=== PATIENT | female | born 1935 | race Caucasian/White ===

== ENCOUNTER → 2016-08-19 | Outpatient (CLI) | payer OTHER ==
--- NOTE | 2016-08-19 17:26 | MR ---
MRI Thoracic Spine Without Contrast History: Compression fracture. Follow-up. Comparison: X-ray from May 2016 and MRI from August 2014. Technique: MRI is performed of the thoracic spine using a 1.5 Tayler MRI system. Sagittal and axial im aging was obtained with standard imaging sequences. Findings: Moderate compression deformity is seen of T8, stable in comparison to the x-ray with eviden ce of methylmethacrylate placement. There is 5 mm of methylmethacrylate posterior and left of the edgardo tebral body in the spinal canal at the lateral recess. Slight anterior wedge compression fracture is seen of T9, which is stable and chronic in appearance. Mild degenerative endplate change is seen at T 8-T9. Degenerative endplate change is also seen at T10-T11 and T11-T12. Disk dislocation is seen at m ultiple levels in the lumbar spine. No significant spondylolisthesis. Compression fracture is seen of L1, which will be described in the lumbar spine report. Thoracic spinal cord is normal in size and s ignal intensity. Mild broad-based annular bulge is seen at T10-T11 and facet arthropathy, causing mil d spinal canal and neural foraminal encroachment. Similar mild degenerative disk and degenerative clemencia nt disease at T11-T12. No other significant spinal canal or neural foraminal encroachment. Impression: 1. Stable moderate chronic compression deformity of T8 with evidence of methylmethacrylate. There is a 5 mm focus of methylmethacrylate posterior to the vertebral body at the left lateral recess at T8. 2. Slight chronic anterior wedge compression deformity of T9. No new compression fractures visualized . 3. Multilevel degenerative disk and degenerative joint disease thoracic spine with mild encroachment of T10-T11 and T11-T12.
--- NOTE | 2016-08-20 20:10 | MR ---
MRI of the Lumbar Spine (Without Contrast) Indication: History of compression fracture. Follow-up. Technique: Sagittal and axial T1 and T2, and sagittal STIR MRI sequences of the lumbar spine without contrast. Axial imaging from T12-S1. Comparison: MRI lumbar spine dated July 01, 2015. Findings: No new compression fracture. The minimal old L1 compression deformity is unchanged and kal a previously in the L2 vertebral body has completely resolved. There is 4 mm of retrolisthesis of L1 on L2, 2 mm of retrolisthesis of L2 on L3, and 4 mm of anteroli sthesis of L5 on S1 are unchanged. No bone marrow replacing lesion or pars defect. New minimal diskog enic Modic changes have developed at the T10-T11 level. The paraspinal soft tissue planes are normal. The abdominal aorta is normal caliber. The conus medullaris resides at the L1-L2 level. T12-L1: Widely patent central canal and neural foramen. Disk desiccation and facet hypertrophy, uncha nged. L1-L2: The diffuse broad-based disk bulge combined with grade 1 retrolisthesis of L1 on L2 and mild f acet hypertrophy results in unchanged minimal central canal narrowing and mild bilateral neural inderjit inal narrowing. L2-L3: The small left paramedian subligamentous disk herniation (protrusion) superimposed on a minima l diffuse broad-based disk bulge is unchanged, resulting in minimal acquired central canal narrowing. Facet hypertrophy is unchanged, resulting in minimal bilateral neural foraminal stenosis. L3-L4: Widely patent central canal and neural foramen. Disk desiccation and mild facet hypertrophy, u nchanged. L4-L5: Widely patent central canal and neural foramen. Disk desiccation and mild facet hypertrophy, u nchanged. L5-S1: Moderate to severe bilateral neural foraminal narrowing, worse left than right due to grade 1 anterolisthesis of L5 on S1, mild diffuse broad-based disk bulge, and facet hypertrophy is unchanged. Central canal is widely patent. Impression: 1. No acute lumbar spine fracture. 2. Old minimal L1 compression deformity, unchanged. 3. Multilevel degenerative disk disease, resulting in no significant central canal narrowing at any l evel. 4. Moderate to severe bilateral neural foraminal narrowing at L5-S1, worse left than right, is unchan ged.
== END ==
LOC: FIMAGING 13:04
PROVIDERS: ATTEND Neurological Surgery
DX: S22.000D Wedge compression fracture of unspecified thoracic vertebra, subsequent encounter for fracture with routine healing (principal); M51.36 Other intervertebral disc degeneration, lumbar region; M51.34 Other intervertebral disc degeneration, thoracic region

== ENCOUNTER 2017-01-19 09:48 | Inpatient (IN) | payer OTHER ==
--- NOTE | 2017-01-19 10:05 | CPEKG ---
Heart Rate: 68 RR Interval: 882 P-R Interval: 160 QRSD Interval: 136 QT Interval: 440 QTC Interval: 469 P [place]: -20 QRS [place]: -54 T Wave [place]: 108 EKG Severity - ABNORMAL ECG - EKG Impression: SINUS RHYTHM EKG Impression: LEFT BUNDLE BRANCH BLOCK Electronically Signed By: Vesta Marrero 19-Jan-2017 16:45:17
--- NOTE | 2017-01-19 10:08 | EDPHY ---
H & P Stated Complaint: Sent for eval L CP since last night;pain sharp,increases w/ deep breath - Personal History Current Tetanus Diphtheria and Acellular Pertussis (TDAP): Unsure - Medical/Surgical History Hx Asthma: No Hx Chronic Respiratory Disease: No Hx Diabetes: No Hx Cardiac Disease: No Hx Renal Disease: No Hx Cirrhosis: No Hx Alcoholism: No Hx HIV/AIDS: No Hx Splenectomy or Spleen Trauma: No Other PMH: back pain - Social History Smoking Status: Never smoked Time Seen by Provider: 01/19/17 09:59 HPI/ROS: CHIEF COMPLAINT: Left-sided chest pain since 7:00 p.m. last night HISTORY OF PRESENT ILLNESS: 81-year-old female history of chronic back pain, complaining of 3 years of exertional left-sided chest pain for which she states she has had limited evaluation, arrives via private vehicle complaining of worse left-sided chest pain which she describes as pleuritic since 7:00 p.m. last evening. She went to urgent care and was referred to the ER for evaluation. She denies radiation of the pain. Denies dyspnea, syncope, near syncope, diaphoresis, nausea, vomiting PRIMARY CARE PROVIDER:[facility] REVIEW OF SYSTEMS: A ten point review of systems was performed and is negative with the exception of the items mentioned in the HPI PAST MEDICAL & SURGICAL HISTORY: Chronic back pain. Denies prior cardiac history. Denies thromboembolic history. SOCIAL HISTORY: nonsmoker. No drug use. No cocaine use FAMILY HISTORY: No pertinent family history PHYSICAL EXAM (Prior to examination, patient consented to physical exam, hands were washed and my usual and customary physical exam procedures followed) 1) GENERAL: Well-developed, well-nourished, alert and oriented. Appears uncomfortable . 2) HEAD: Normocephalic, atraumatic 3) HEENT: Pupils equal, round, reactive to light bilaterally. Sclera anicteric. 4) NECK: Full range of motion, no bruit s. 5) LUNGS: Clear auscultation bilaterally, no wheezes, no rhonchi, no retractions. Analgesic patches in place which are removed. There are no underlying lesions, no vesicles. No clinical evidence of zoster or infection. Chest wall is nontender. 6) HEART: Regular rate and rhythm, no murmur, no heave, no gallop. 7) ABDOMEN: No guarding, no rebound, no focal tenderness, negative McBurney's, negative Campos's, negative Rovsing's, negative peritoneal sign, 8) MUSCULOSKELETAL: Moving all extremities, no focal areas of tenderness, no obvious trauma. No peripheral edema or discoloration. 9) BACK: No CVA tenderness, no midline vertebral tenderness, no fluctuance, no step-off, no obvious trauma, no visual or palpable abnormality. 10) SKIN: No rash, no petechiae. 11) Psychiatric: Patient is oriented X 3, there is no agitation. DIFFERENTIAL DIAGNOSIS: In no particular order, including but not limited to myocardial ischemia, pulmonary embolus, chest wall pain, pleural inflammation and pulmonary infectious causes. (Neal Bragg) Constitutional: Initial Vital Signs Heart Rate 70 01/19/17 09:50 Respiratory Rate 18 01/19/17 09:50 Blood Pressure 139/71 H 01/19/17 09:50 O2 Sat (%) 95 01/19/17 09:50 O2 Delivery Mode Room Air Allergies/Adverse Reactions: No Known Allergies Allergy (Verified 01/19/17 09:50) Home Medications: Medication Instructions Recorded Levothyroxine [Synthroid 50 mcg 50 mcg PO DAILY06 08/22/14 (*)] clonazePAM [klonoPIN (*)] 3 mg PO HS 08/22/14 Alendronate Sodium [Fosamax 70 MG 70 mg PO WARD@0700 01/19/17 (*)] C/E/Zn/Cu/OM3/DHA/EPA/LUT/ZEAX 2 each PO DAILY 01/19/17 [Preservision Areds 2 Softgel] Cholecalciferol Vit D3 [Vitamin D3 1,000 units PO DAILY 01/19/17 (*)] Herbals/Supplements -Info Only 1 ea PO DAILY 01/19/17 [place]-3 Fatty Acids [Fish Oil 1000 1,000 mg PO DAILY 01/19/17 mg (*)] Medical Decision Making - Diagnostics EKG Interpretation: 12 lead EKG is interpreted in Trace master View by emergency department physician. It shows left bundle branch block. Sinus rhythm at 68. (Vesta Marrero) Imaging Results: P images reviewed by myself. (Neal Bragg) ED Course/Re-evaluation: Care and management in consultation with secondary supervising physician Dr Marrero . This patient was re-evaluated with serial examinations. We discussed her diagnostic studies showing a normal troponin, normal CT scan of the chest with no evidence of pulmonary embolus or aortic dissection. The specific etiology of the patient's chest pain is not completely clear. We discussed possibility of early zoster however given the patient's age, and other variables , I do not think that discharge from the emergency department is appropriate on a Sunday. Phone consultation with hospitalist Agnes, admit to Dr. Graham. ( Neal Bragg) The patient was evaluated and managed by the physician treasury assistant. I have reviewed this chart and I agree with the findings and plan of care as documented , as indicated by my signature. I am the secondary supervising physician. ( Vesta Marrero) - Data Points Laboratory Results: Laboratory Results 01/19/17 10:04 01/19/17 10:04 Medications Given: Discontinued Medications Ketorolac Tromethamine (Toradol) 15 mg IVP Q6HRS [facility] Stop: 01/24/17 17:59 Last Admin: 01/19/17 23:54 Dose: 15 mg Trazodone HCl (Trazodone) 50 mg PO ONCE ONE Stop: 01/20/17 01:46 Last Admin: 01/20/17 01:47 Dose: 50 mg Departure - Departure Disposition: [facility] Inpatient Acute Clinical Impression: Chest pain Qualifiers: Chest pain type: chest pain on breathing Qualified Code(s): R07.1 - Chest pain on breathing Condition: Fair
[2017-01-19 10:17] LABS: % IMMATURE GRANULYOCYTES 0.4 % (0.0-1.1); ABSOLUTE IMMATURE GRANULOCYTES 0.03 10^3/uL (0.00-0.10); ADD DIFF? NO; ADD MORPH? YES; ADD SCAN? NO; ATYPICAL LYMPHOCYTE FLAG 30 (0-99); FRAGMENT RBC FLAG 20 (0-99); HEMATOCRIT 34.9 % (38.0-47.0); HEMOGLOBIN 11.1 g/dL (12.6-16.3); LEFT SHIFT FLG 0 (0-99); LIPEMIA HEMOLYSIS FLAG 80 (0-99); MEAN CELL HEMOGLOBIN 21.4 pg (27.9-34.1); MEAN CELL HEMOGLOBIN CONCENTR. 31.8 g/dL (32.4-36.7); MEAN PLATELET VOLUME 9.2 fL (8.7-11.7); PLATELET CLUMPS FLAG 10 (0-99); PLATELET COUNT 238 10^3/uL (150-400); RED BLOOD CELL COUNT 5.19 10^6/uL (4.18-5.33); RED CELL DISTRIBUTION WIDTH 15.4 % (11.5-15.2)
[2017-01-19 10:22] LABS: MEAN CELL VOLUME 67.2 fL (81.5-99.8)
[2017-01-19 10:35] LABS: ANION GAP 10 mEq/L (8-16); CALCIUM 9.2 mg/dL (8.5-10.4); CARBON DIOXIDE 27 mEq/l (22-31); CHLORIDE 101 mEq/L (97-110); CREATININE 0.7 mg/dL (0.6-1.0); GLOMERULAR FILTRATION RATE > 60; GLUCOSE 94 mg/dL (70-100); POTASSIUM 4.3 mEq/L (3.5-5.2); SODIUM 138 mEq/L (134-144)
[2017-01-19 10:41] LABS: HYPOCHROMIA 1+; MICROCYTES 2+; POLYCHROMASIA 1+
[2017-01-19 10:42] LABS: PLATELET ESTIMATE ADEQUATE (ADEQ)
[2017-01-19 11:01] LABS: TROPONIN I < 0.012 ng/mL (0-0.034)
[2017-01-19] MEDS ORDERED: IOPAMIDOL (ISOVUE 370) 100 ML BTL IV ONE (11:09)
[2017-01-19] MEDS ORDERED: ONDANSETRON 4 MG/2 ML VIAL IVP PRN (13:58)
[2017-01-19] MEDS ORDERED: ACETAMINOPHEN 325 MG TAB PO PRN (13:58)
[2017-01-19] MEDS: KETOROLAC 15 MG/1 ML SDV IVP SCH ×2 (19:41→23:54)
[2017-01-19] MEDS: clonazePAM 1 MG TAB PO SCH ×2 (20:31→22:20)
[2017-01-19] MEDS ORDERED: NITROGLYCERIN 0.4 MG BTL SL ONE (23:50)
[2017-01-19] MEDS: NITROGLYCERIN 0.4 MG BTL SL PRN (23:54)
[2017-01-20] MEDS: NITROGLYCERIN 0.4 MG BTL SL PRN (00:03)
[2017-01-20] MEDS: IPRATROPIUM/ALBUTEROL 3 ML DEYVIAL IH SCH ×4 (01:44→17:44)
[2017-01-20] MEDS ORDERED: traZODone 50 MG TAB PO ONE (01:45)
--- NOTE | 2017-01-20 06:10 | CPEKG ---
Heart Rate: 61 RR Interval: 984 P-R Interval: 192 QRSD Interval: 138 QT Interval: 476 QTC Interval: 480 P [place]: 53 QRS [place]: -37 T Wave [place]: 103 EKG Severity - ABNORMAL ECG - EKG Impression: SINUS RHYTHM EKG Impression: atypical LEFT BUNDLE BRANCH BLOCK Electronically Signed By: Israel Deshpande 22-Jan-2017 08:10:55
[2017-01-20] MEDS: CHOLECALCIFEROL VIT D3 1,000 UNITS TAB PO SCH (08:12)
[2017-01-20] MEDS: PRESERVISION AREDS2 FORMULA EYE VIT 1 EACH PO SCH (08:12)
[2017-01-20] MEDS: OMEGA-3 FATTY ACIDS 1,000 MG CAP PO SCH (08:12)
[2017-01-20] MEDS: LEVOTHYROXINE 50 MCG TAB PO SCH (08:12)
[2017-01-20] MEDS ORDERED: Herbals/Supplements -Info Only PO SCH (09:00)
[2017-01-20] MEDS ORDERED: REGADENOSON 0.4 MG/5 ML SYR IVP ONE (10:56)
--- NOTE | 2017-01-20 11:20 | PDCARST ---
CAR Stress Test Results Type of Stress Test: Lexiscan stress test Indication: cp/LBBB Description of Procedure: After informed consent was obtained, pt was established to ECG, blood pressure, HR and oximetry monitoring. STRESS EKG AND HEMODYNAMIC DATA. Resting heart rate: 64 BPM. Resting ECG: SR LBBB. Resting blood pressure: 112/54 mmHg. O2 saturation at rest: 94%. Peak heart rate: 79 BPM. Peak blood pressure: 113/54 mmHg. Arrhythmias: none. Symptoms: The patient experienced no typical symptoms of angina during stress or recovery. Stress/Infusion ECG: No change in rhythm with no significant ST/T wave changes. Stress/infusion O2 saturation: 96 Impression: Uneventful Lexiscan infusion. Conclusion: Await nuclear images.
--- NOTE | 2017-01-20 17:57 | HOSPPROG ---
Hospitalist Progress Note Assessment/Plan: 1- CHEST PAIN -coronary calcifications on CT chest and a left bundle branch block, lexiscan in process -consider cardiology eval here vs as o/p depending upon results 2- Anxiety/insomnia/RLS/hx depression -trial flexeril prn - at [facility], suspect lots of stressors, SW/CM asked to help, home eval will be arranged too at discharge 3. Anemia -history of thalessemia -follow for stability 4. Hypoxia -titrate O2 -may need home O2 at discharge 5. DVT prophy -ambulation dispo- likely DC tomorrow if cardiac testing OK, will remain 1 more mdnt bc of age/risk factors for cardiac eval FULL CODE, Dr Delatorre PCP Subjective: Portuguese is primary language- visit completed in Portuguese. Says no further chest pain. No SOB. No n/v/d. in skilled nursing, living in home alone. Says able to drive/cook/clean. Son in [place]. No close friends nearby. Very worried about her , difficult to sleep bc of restless legs. No prev cardiac eval per her report, wants to discharge. Objective: Vital Signs Temp Pulse Resp BP Pulse Ox 97.4 F 69 14 115/53 L 95 01/20/17 16:31 01/20/17 17:45 01/20/17 17:45 01/20/17 16:31 01/20/17 17:45 01/19/17 01/20/17 01/21/17 11:59 11:59 11:59 Intake Total 300 Balance 300 - Time Spent With Patient Time Spent with Patient: greater than 35 minutes Time Spent with Patient: Greater than 35 minutes spent on this patients care, greater than 50% of time spent counseling, educating, and coordinating care regarding the above mentioned plan. - Pending Discharge Pending Discharge Within 48 Hours: Yes Pending Discharge Date: 01/24/17 Pending Discharge Time: 11:00 - Physical Exam Constitutional: no apparent distress, appears nourished, not in pain, obese Eyes: PERRL, anicteric sclera, EOMI Ears, Nose, Mouth, Throat: moist mucous membranes, hearing normal, no oral mucosal ulcers Cardiovascular: regular rate and rhythym, no murmur, rub, or gallop, No edema Respiratory: no respiratory distress, no rales or rhonchi, clear to auscultation Gastrointestinal: normoactive bowel sounds, soft, non-tender abdomen, no palpable masses Skin: warm Musculoskeletal: other (SPENCER) Neurologic: other (awake, alert, appropriate) Psychiatric: interacting appropriately, not anxious, not encephalopathic, thought process linear ICD10 Worksheet Patient Problems: Problems Problem Status Onset Chest pain Acute
--- NOTE | 2017-01-20 18:18 | PDGENHP ---
History and Physical History and Physical: ADMISSION HISTORY AND PHYSICAL: CHIEF COMPLAINT: chest pain HISTORY: This patient comes in the the ER with a sharp pleuritic pain in the Left and Central chest that had onset at early last evening, at rest. It has not been aggravated by exertion, eating or anything else she can think of. It is notably better today but still present. She did not use any treatment at home. She did not have sob, leg pain or swelling or fever sxs, no nausea, no abdominal pain. Also of note she did have a diagnosis of bronchitis 7 or 8 days ago, and was treated elsewhere. She does not have the symptoms of bronchitis at this time which was primarily some cough and wheeze. She was treated with steroid. She initially presented to the urgent care and was transferred to the ER for further evaluation and is now admitted to PCU. In the ER she did have a CT chest with no PE but some signs of bronchitis. In addition to the presenting complaint above, she has a hx of chronic upper back pain, but is not on medicine for that. She also described to Dr Marrero in the ER that she has some chronic exertional chest discomfort but I could not get her to clearly describe this to me - it is not similar to the pain she comes here with now She is not a smoker, is not diabetic or hypertensive. There is some family history of heart disease but she was not able to define for me what heart problems her family has. ROS: she has her usual chronic back pain she feels tired recent cough and wheeze resolved as above comprehensive review otherwise unrevealing PMH: chronic back pain insomnia hypothyroidism osteopenia Fam Hx: heart disease, patient unable to specify Social History: no tobacco or alcohol, no street drugs Medications: I have reviewed her medication list as reconciled by our pharmacist, and ordered appropriate medicines Vital Signs: stable without fever Examination: alert, oriented, mildly anxious she initially avoids any eye contact but through the course of our visit does make approproate eye contact good mentation no focal neurologic abnormality skin: warm dry no cyanosis, good cap refill in digits no jvd, neck otherwise normal chest: she is extremely tender along the L chest wall ribs 5-7 resps: not labored Lungs: no wheeze, no rales Heart: regular, no murmur abdomen: unremarkable limbs: warm with palpable pulses, no edema EKG in ER, personally reviewed by me: NSR, with LBBB (no old for comparison) CT chest done in ER personally reviewed by me: no chf, no effusions or infiltrates there are coronary calcifications the radiologist reads with findings to suggest bronchitis Lab data: first troponin normal IMPRESSION: 1- CHEST PAIN -this is a sharp pleuritc chest pain lasting now 20 hours with normal troponin; this story is most consistant with likely costochondral pain due to recent viral resp infection, and she does have rib tenderness to go along with that. -however her story also includes a chronic exertional chest symptom (I could not clarify or confirm with her) as well as coronary calcifications on CT chest and a left bundle branch block, so that CAD needs to be ruled out as at least a cause of her chronic symptoms if not the acute symptom 2- EVIDENCE OF ATHEROSCLEROSIS OF CORONARIES ON CT CHEST PLANS: -will give her NSAID now as treatment for her rib cage pain -check repeat troponins -stress test or other assessment of her coronaries depending on results; LBBB will make lexiscan necessary if stress test done
[2017-01-20] MEDS: CYCLOBENZAPRINE 10 MG TAB PO SCH (22:15)
[2017-01-20] MEDS: clonazePAM 1 MG TAB PO SCH (22:15)
[2017-01-21] MEDS: IPRATROPIUM/ALBUTEROL 3 ML DEYVIAL IH SCH ×4 (00:16→17:09)
[2017-01-21] MEDS: LEVOTHYROXINE 50 MCG TAB PO SCH (05:07)
[2017-01-21 05:40] LABS: HEMATOCRIT 32.6 % (38.0-47.0); HEMOGLOBIN 10.4 g/dL (12.6-16.3); MEAN CELL HEMOGLOBIN 21.5 pg (27.9-34.1); MEAN CELL HEMOGLOBIN CONCENTR. 31.9 g/dL (32.4-36.7); RED BLOOD CELL COUNT 4.84 10^6/uL (4.18-5.33); RED CELL DISTRIBUTION WIDTH 15.3 % (11.5-15.2)
[2017-01-21 05:44] LABS: MEAN CELL VOLUME 67.4 fL (81.5-99.8)
[2017-01-21 05:55] LABS: ANION GAP 10 mEq/L (8-16); CALCIUM 9.2 mg/dL (8.5-10.4); CARBON DIOXIDE 27 mEq/l (22-31); CHLORIDE 105 mEq/L (97-110); CREATININE 0.8 mg/dL (0.6-1.0); GLOMERULAR FILTRATION RATE > 60; GLUCOSE 89 mg/dL (70-100); POTASSIUM 4.5 mEq/L (3.5-5.2); SODIUM 142 mEq/L (134-144)
[2017-01-21 06:05] LABS: % SATURATION 40 % (20-55); TOTAL IRON BINDING CAPACITY 230 ug/dL (260-490)
[2017-01-21] MEDS ORDERED: ALENDRONATE SODIUM 70 MG TAB PO SCH (07:00)
[2017-01-21] MEDS: CHOLECALCIFEROL VIT D3 1,000 UNITS TAB PO SCH (09:28)
[2017-01-21] MEDS: PRESERVISION AREDS2 FORMULA EYE VIT 1 EACH PO SCH (09:28)
[2017-01-21] MEDS: OMEGA-3 FATTY ACIDS 1,000 MG CAP PO SCH (09:28)
--- NOTE | 2017-01-21 11:48 | PDIAF ---
- Diagnosis Code Status: Full Code - Medication Management Discharge Medications: Medications to Continue on Transfer Levothyroxine [Synthroid 50 mcg (*)] 50 mcg PO DAILY06 08/22/14 [Last Taken ] clonazePAM [klonoPIN (*)] 3 mg PO HS 08/22/14 [Last Taken 01/18/17] Alendronate Sodium [Fosamax 70 MG (*)] 70 mg PO WARD@0700 01/19/17 [Last Taken ] C/E/Zn/Cu/OM3/DHA/EPA/LUT/ZEAX [Preservision Areds 2 Softgel] 2 each PO DAILY [Last Taken Unknown] Cholecalciferol Vit D3 [Vitamin D3 (*)] 1,000 units PO DAILY 01/19/17 [Last Taken 01/18/17] Herbals/Supplements -Info Only 1 ea PO DAILY 01/19/17 [Last Taken Unknown] [place]-3 Fatty Acids [Fish Oil 1000 mg (*)] 1,000 mg PO DAILY 01/19/17 [Last Taken Unknown] Cyclobenzaprine [Flexeril 10 MG (*)] 5 mg PO HS PRN #30 tab 01/21/17 [Last Taken Unknown] Nitroglycerin [Nitrostat 0.4 mg (*)] 0.4 mg SL Q5M PRN #1 btl 01/21/17 [Last Taken Unknown] Tank Setter Helper Antibiotics: n/a Discharge Medications: Refer to the Discharge Home Medication list for PRN reason. PICC Care - Routine: N/A - Orders Services needed: Master Shelf Stocker, Physical Therapy, Occupational Therapy Home Care Face to Face: Ynes Parikh MD 01/21/2017 Isolation Type: n/a Oxygen: n/a Diet Recommendation: no restrictions on diet Diet Texture: Regular Texture Diet Ugarte: Not applicable - Follow Up Care Current Providers and Referrals: Nava Delatorre MD [Primary Care Provider] - As per Instructions
[2017-01-21] MEDS ORDERED: diphenhydrAMINE 25 MG CAP PO ONE (13:56)
[2017-01-21] MEDS ORDERED: DIAZEPAM 5 MG TAB PO ONE (13:56)
[2017-01-21] MEDS ORDERED: ASPIRIN EC 325 MG TAB PO ONE (13:56)
[2017-01-21] MEDS ORDERED: NITROGLYCERIN 0.4 MG BTL SL PRN (13:56)
[2017-01-21] MEDS ORDERED: HEPARIN 10,000 UNIT/10 ML MDV ONE (14:25)
[2017-01-21] MEDS ORDERED: VERAPAMIL 5 MG/2 ML VIAL ONE (14:25)
[2017-01-21] MEDS ORDERED: IOPAMIDOL (ISOVUE-370) 150 ML BTL IV ONE ×3 (14:25→15:06)
[2017-01-21] MEDS ORDERED: LIDOCAINE 1% 300 MG/30 ML SDV ONE (14:25)
[2017-01-21] MEDS ORDERED: MIDAZOLAM 2 MG/2 ML VIAL ONE (14:27)
[2017-01-21] MEDS ORDERED: fentaNYL 100 MCG/2 ML INJ ONE (14:27)
--- NOTE | 2017-01-21 14:52 | GCON ---
[f rep st] CONSULTATION CARDIOLOGY CONSULTATION DATE OF CONSULTATION: 01/21/2017 REFERRING PHYSICIAN: Ynes Parikh MD INDICATIONS: Chest pain, abnormal stress myocardial perfusion imaging study. HISTORY OF PRESENT ILLNESS: This patient is 81 years old and has a history of a chart diagnosis of aortic regurgitation. I do not see any testing that pertains to this diagnosis. Additionally, martha mcintyre is no record of her seeing a change management consultant in the past. She is admitted to the hospital here with chest discomfort. She states that she has been a little more short of breath here over the last approximately 6 months . She has been experiencing symptoms of dyspnea on exertion. These symptoms culminated in an episo de of chest discomfort which occurred on Sunday evening. At that time, she states that she had ches t pain involving her left chest and shoulder. There is mention that the pain was described as sharp . Her symptoms lasted until she was seen in the emergency department at 9 o'clock in the morning. She was given nitroglycerin and apparently had relief of her chest pain then. She did have a chest CTA at that time, which failed to demonstrate any evidence of PE. The comment was made, however, th at she had evidence of coronary calcifications. This prompted the performance of a stress test. Toni mcintyre had a stress myocardial perfusion imaging study done yesterday. Resting images were performed tod ay. This indicated a moderate-sized reversible inferolateral defect. She has normal left ventricul ar systolic function. She states she has been pain-free since admission. PAST MEDICAL HISTORY: 1. Uncharacterized aortic regurgitation, as described above. 2. History of hyperparathyroidism. 3. Nocturnal hypoxemia. 4. Restless legs syndrome. 5. History of bronchitis. 6. History of osteoarthritis. 7. Chronic back pain. 8. History of shoulder impingement. 9. Hypothyroidism. 10. Thalassemia. MEDICATIONS: Her home medications include herbal supplements, vitamin D, clonazepam, omega-3 fatty acids, levothyroxine, Fosamax, cyclobenzaprine and apparently she has a prescription for sublingual nitroglycerin. ALLERGIES: None. SOCIAL HISTORY: She is a nonsmoker. Does not abuse alcohol. She does not exercise on a regular ba sis. She is . REVIEW OF SYSTEMS: A review of systems was performed and was otherwise negative. PHYSICAL EXAMINATION: VITAL SIGNS: Blood pressure 118/78 with a mean of 91, heart rates in the 80s , O2 saturations are between 88% and 92% on room air and nasal cannula oxygen. She is afebrile. GE NERAL: She is an obese female, in no acute distress. HEENT: Normocephalic, atraumatic. She has anicteric sclerae. NECK: No jugular venous distention, adenopathy or thyromegaly. RESPIRA TORY: She speaks in full sentences. She is breathing easily, using no accessory muscles. On auscu ltation, she has clear lung correa bilaterally. CARDIAC: Precordial inspection is unremarkable. P IN is nondisplaced. On auscultation, she has a regular rate and rhythm, with a 1/6 systolic ejectio n murmur at the right upper sternal border associated with a 1/6 diastolic murmur again in the right upper sternal border. There are no third or fourth heart sounds noted. ABDOMEN: Soft and nontend er. She has normal bowel sounds with no masses. EXTREMITIES: Warm and well perfused, with no kal a. VASCULATURE: She has 2+ radial, dorsal, pedal and posterior tibial pulses. IMAGING: Her electrocardiogram demonstrates sinus rhythm with a left bundle branch block and a left anterior fascicular block. Her stress myocardial perfusion imaging study was reviewed by myself. There is a moderate reversible inferolateral defect. She had a chest CTA negative for PE. However, did mention coronary calcifications. LABORATORY DATA: White blood cell count is 7, hematocrit 34.9, platelet count is 238,000. Sodium 1 42, potassium 4.5, BUN 20, creatinine 0.8. Troponins have been negative since admission. IMPRESSION: This patient is 81 years old. She has multiple medical problems. She presents to the hospital now with chest discomfort. Her workup thus far has affectively excluded an infectious proc ess, disease of the great vessels and pulmonary embolism. Her CT scan did mention coronary calcific ations. Her recent stress test was intermediate risk with the presence of a moderate-sized inferola teral reversible perfusion defect. RECOMMENDATIONS: As a result of this, I think that she would be best served by proceeding with donovan nary angiography for definitive risk stratification. The risks and alternatives were discussed with her today. Plan to proceed this afternoon. Further recommendations will be made pending the results of that study. /[id number]/MODL
--- NOTE | 2017-01-21 15:46 | PDDXCAT ---
Diagnostic Cath Note - . 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 Bifurcates into the left anterior descending and circumflex. No significant disease. LAD: Moderate caliber vessel. 2 principal diagonal branches. Minimal luminal irregularities with no obstructive disease. LCX: Moderate caliber vessel. 2 obtuse marginal branches. Luminal irregularities with no obstructive disease. RCA: Small vessel. Dominant. PDA and posterolateral branch identified. Minimal lumin irregularities with no obstructive disease. EDP: 26 mmHg . Left ventricular pressure 162/18. LVEF: 60%. Wall motion: Normal. - Findings-Right Heart Catheterization AO: 132/54 with a mean of 86 mmHg. Complications: Right common iliac artery dissection. This corrected itself spontaneousl Estimated blood loss: <50ml Closure method: manual pressure Assessment: 1. Minimal nonobstructive epicardial coronary disease. 2. normal left ventricular systolic function. 3. Evidence of a gradient across the aortic valve consists moderate aortic stenosis. 4. Elevated end-diastolic pressure. 5. Atypical chest pain. 6. Likely false positive stress myocardial perfusion imaging study. Plan: Medical therapy in light of her nonobstructive CAD. Echocardiographic assessment of her valvular aortic stenosis. Intervention: None. Patient Problems: Problems Problem Status Onset Chest pain Acute
[2017-01-21] MEDS ORDERED: ATROPINE SULFATE 1 MG/10 ML SYR IVP PRN (15:50)
--- NOTE | 2017-01-21 20:01 | HOSPPROG ---
Hospitalist Progress Note Assessment/Plan: 1- CHEST PAIN -coronary calcifications on CT chest and a left bundle branch block, lexiscan with reversible defect -cardiology eval ordered, spoke with Dr Boucher, plan for cardiac cath today for definitive eval, discharge deferred 2- Anxiety/insomnia/RLS/hx depression -trial flexeril prn helped - at [facility], suspect lots of stressors, SW/CM asked to help, home eval will be arranged too at discharge, opens up a bit more when speaking in Urdu (so preferable if home care/eval can speak Urdu if possible) 3. Anemia -history of thalessemia per chart review -continue to check for stability (clay post procedure/prior to discharge) -iron nl so likely is chronic/thalessemia 4. Hypoxia -titrated O2, now on RA -? home O2 at discharge (recheck tomorrow prior to discharge, if OK when awake, consider home overnight oximetry testing as low here at nt/sleeping) 5. DVT prophy -ambulation dispo- likely DC tomorrow depending upon results of cardiac cath, will remain 1 more mdnt bc of age/risk factors, cardiac eval FULL CODE, Dr Delatorre PCP Subjective: Urdu preferable. Says slept well, flexeril helped and would like Rx. Also would like Rx nitro as it resolved her chest pain. Denies further CP, no SOB/n/v/d. Would like to go home. Objective: Vital Signs Temp Pulse Resp BP Pulse Ox 97.9 F 84 15 118/78 88 L 01/21/17 12:00 01/21/17 12:00 01/21/17 12:00 01/21/17 12:00 01/21/17 12:00 Laboratory Results 01/21/17 05:20 01/21/17 05:20 01/20/17 01/21/17 01/22/17 11:59 11:59 11:59 Intake Total 250 0 Output Total 400 Balance 250 -400 - Time Spent With Patient Time Spent with Patient: greater than 35 minutes Time Spent with Patient: Greater than 35 minutes spent on this patients care, greater than 50% of time spent counseling, educating, and coordinating care regarding the above mentioned plan. - Physical Exam Constitutional: no apparent distress, appears nourished, not in pain Eyes: PERRL, anicteric sclera, EOMI Ears, Nose, Mouth, Throat: moist mucous membranes, hearing normal Cardiovascular: regular rate and rhythym, no murmur, rub, or gallop, No edema Respiratory: no respiratory distress, no rales or rhonchi, clear to auscultation Skin: warm Psychiatric: interacting appropriately, not anxious, not encephalopathic, thought process linear, flat affect ICD10 Worksheet Patient Problems: Problems Problem Status Onset Chest pain Acute
[2017-01-21] MEDS ORDERED: IPRATROPIUM/ALBUTEROL 3 ML DEYVIAL IH PRN (20:04)
[2017-01-21] MEDS: CYCLOBENZAPRINE 10 MG TAB PO SCH (20:14)
[2017-01-21] MEDS: clonazePAM 1 MG TAB PO SCH (20:14)
[2017-01-22 04:59] LABS: HEMATOCRIT 33.5 % (38.0-47.0); HEMOGLOBIN 10.6 g/dL (12.6-16.3); MEAN CELL HEMOGLOBIN 21.2 pg (27.9-34.1); MEAN CELL HEMOGLOBIN CONCENTR. 31.6 g/dL (32.4-36.7); RED BLOOD CELL COUNT 4.99 10^6/uL (4.18-5.33); RED CELL DISTRIBUTION WIDTH 15.3 % (11.5-15.2)
[2017-01-22 05:06] LABS: MEAN CELL VOLUME 67.1 fL (81.5-99.8)
[2017-01-22 05:13] LABS: ANION GAP 12 mEq/L (8-16); CALCIUM 9.3 mg/dL (8.5-10.4); CARBON DIOXIDE 24 mEq/l (22-31); CHLORIDE 103 mEq/L (97-110); CHOLESTEROL 186 mg/dL (140-220); CHOLESTEROL/HDL RATIO 2.45 RATIO (1.00-4.44); CREATININE 0.8 mg/dL (0.6-1.0); GLOMERULAR FILTRATION RATE > 60; GLUCOSE 90 mg/dL (70-100); HIGH DENSITY LIPOPROTEIN 76 mg/dL (40-85); LDL/HDL RATIO 1.25 RATIO (1.00-3.22); LOW DENSITY LIPOPROTEIN 95 mg/dL (80-100); NON-HIGH DENSITY LIPOPROTEIN 110 mg/dL (90-129); POTASSIUM 4.5 mEq/L (3.5-5.2); SODIUM 139 mEq/L (134-144); TRIGLYCERIDE 76 mg/dL (35-135); VERY LOW DENSITY LIPOPROTEINS 15 mg/dL (8-25)
[2017-01-22] MEDS: LEVOTHYROXINE 50 MCG TAB PO SCH (06:41)
[2017-01-22 07:35] VITALS: BP 120/61; PULSE 74; RESP 17; TEMP 97.7; O2SAT 91
[2017-01-22] MEDS: PRESERVISION AREDS2 FORMULA EYE VIT 1 EACH PO SCH (08:52)
[2017-01-22] MEDS: CHOLECALCIFEROL VIT D3 1,000 UNITS TAB PO SCH (08:52)
[2017-01-22] MEDS: OMEGA-3 FATTY ACIDS 1,000 MG CAP PO SCH (08:52)
--- NOTE | 2017-01-22 10:57 | HOSPPROG ---
Hospitalist Progress Note Assessment/Plan: 81 yo F w cp 1- CHEST PAIN -neg cath lexiscan suspected as false positive 2- Anxiety/insomnia/RLS/hx depression - at [facility], suspect lots of stressors, SW/CM asked to help, home eval will be arranged too at discharge, opens up a bit more when speaking in [place] (so preferable if home care/eval can speak [place] if possible) 3. Anemia -history of thalessemia per chart review -continue to check for stability (clay post procedure/prior to discharge) -iron nl so likely is chronic/thalessemia 4. Hypoxia 96% on RA w ambulation, as verified by me 5. DVT prophy -ambulation home today > 30 minutes Subjective: neg cath. no events tele (interp by me) Objective: Vital Signs Temp Pulse Resp BP Pulse Ox 36.5 C 74 17 120/61 91 L 01/22/17 07:34 01/22/17 07:34 01/22/17 07:34 01/22/17 07:34 01/22/17 07:34 Laboratory Results 01/22/17 04:23 01/22/17 04:23 01/21/17 01/22/17 01/23/17 05:59 05:59 05:59 Intake Total 250 380 Output Total 400 Balance 250 -20 - Physical Exam Constitutional: no apparent distress, appears nourished Eyes: PERRL, anicteric sclera Ears, Nose, Mouth, Throat: moist mucous membranes, hearing normal Cardiovascular: regular rate and rhythym, no murmur, rub, or gallop Respiratory: no respiratory distress, no rales or rhonchi Gastrointestinal: normoactive bowel sounds, soft, non-tender abdomen Genitourinary: no bladder fullness, No edmond in urethra Skin: warm, normal color Musculoskeletal: full muscle strength, no muscle tenderness Neurologic: AAOx3 ICD10 Worksheet Patient Problems: Problems Problem Status Onset Chest pain Acute
--- NOTE | 2017-01-22 17:25 | GDS ---
[f rep st] DISCHARGE SUMMARY DISCHARGE DIAGNOSES: 1. Chest pain with positive Lexiscan but negative cath. 2. Anxiety. 3. Anemia. HOSPITAL COURSE: Please see admission history and physical by Dr. Trino Graham. The patient pres ented on the evening of the with sharp pleuritic pain. She had a CT PE ruling out pulmonary em bolism. She had a Lexiscan that was positive and subsequently underwent cardiac catheterization yes terday which was normal, without evidence of ischemia. She is discharged today. /[id number]/MODL
== END 2017-01-22 12:04 | disposition home health service (06) | DRG 287 ==
LOC: F2W 12:48 → OBSVTOIN 01-20 18:00
PROVIDERS: ADMIT Internal Medicine; ATTEND Internal Medicine
DX: R07.89 Other chest pain (principal); F41.9 Anxiety disorder, unspecified; D64.9 Anemia, unspecified; G89.29 Other chronic pain; G47.00 Insomnia, unspecified; E03.9 Hypothyroidism, unspecified
CPT/HCPCS: 82947-QW; A9500; C1769; G0378; J1644; J1885; J2250; J2785; J3010; Q9967

== ENCOUNTER → 2017-11-26 | Outpatient (CLI) | payer OTHER | LOC: GIMAGING 12:42 | PROVIDERS: ATTEND Family Medicine | DX: M79.652 Pain in left thigh (principal) | CPT/HCPCS: 73551-PO ==

== ENCOUNTER 2018-07-05 12:25 | Observation (INO) | payer OTHER ==
--- NOTE | 2018-07-05 13:20 | EDPHY ---
H & P Stated Complaint: Sent in from clinic for placement into SNF Time Seen by Provider: 07/05/18 13:01 HPI/ROS: CHIEF COMPLAINT: Failure to thrive HISTORY OF PRESENT ILLNESS: Patient is an 82-year-old female who fell on Sunday and has a proximal humeral head fracture. She followed up on Sunday with Orthopedics Dr. Tapia. She is in a sling and taking Vicodin at home. Today she and her son spoke with Dr. Delatorre. She is not succeeding at home. She cannot get out of bed because of pain. She lives alone her is in a long-term. Dr. Delatorre called and requested that we admit her for placement. Patient and son states that she does not need further workup simply admission for increased level of care, physical therapy, pain control center. Severity: Moderate Modifying factors: None REVIEW OF SYSTEMS: Constitutional: denies: chills, fever, recent illness, recent injury EENTM: denies: blurred vision, double vision, nose congestion Respiratory: denies: cough, shortness of breath Cardiac: denies: chest pain, irregular heart rate, lightheadedness, palpitations Gastrointestinal/Abdominal: denies: abdominal pain, diarrhea, nausea, vomiting, blood streaked stools Genitourinary: denies: dysuria, frequency, hematuria, pain Musculoskeletal: See HPI Skin: denies: lesions, rash, jaundice, bruising Neurological: denies: headache, numbness, paresthesia, tingling, dizziness, weakness Hematologic/Lymphatic: denies: blood clots, easy bleeding, easy bruising Immunologic/allergic: denies: HIV/AIDS, transplant 10 systems reviewed and negative except as noted EXAM: GENERAL: Well-appearing, well-nourished and in no acute distress. HEAD: Atraumatic, normocephalic. EYES: Pupils equal round and reactive to light, extraocular movements intact, sclera anicteric, conjunctiva are normal. ENT: TMs normal, nares patent, oropharynx clear without exudates. Moist mucous membranes. NECK: Normal range of motion, supple without lymphadenopathy or JVD. LUNGS: Breath sounds clear to auscultation bilaterally and equal. No wheezes rales or rhonchi. HEART: Regular rate and rhythm without murmurs, rubs or gallops. ABDOMEN: Soft, nontender, normoactive bowel sounds. No guarding, no rebound. No masses appreciated. BACK: No CVA tenderness, no spinal tenderness, step-offs or deformities EXTREMITIES: Left arm in sling, tenderness to proximal humerus. Moderate swelling. normal pulses distally. NEUROLOGICAL: Cranial nerves II through XII grossly intact. Normal speech, normal gait. 5/5 strength, normal movement in all extremities, normal sensation , normal reflexes PSYCH: Normal mood, normal affect. SKIN: Warm, dry, normal turgor, no visible rashes or lesions. Source: Patient Exam Limitations: No limitations - Personal History Current Tetanus/Diphtheria Vaccine: No Current Tetanus Diphtheria and Acellular Pertussis (TDAP): No - Medical/Surgical History Hx Asthma: No Hx Chronic Respiratory Disease: No Hx Diabetes: No Hx Cardiac Disease: No Hx Renal Disease: No Hx Cirrhosis: No Hx Alcoholism: No Hx HIV/AIDS: No Hx Splenectomy or Spleen Trauma: No Other PMH: back pain - Family History Significant Family History: No pertinent family hx - Social History Smoking Status: Never smoked Alcohol Use: None Constitutional: Initial Vital Signs Temperature (C) 36.7 C 07/05/18 12:32 Heart Rate 66 07/05/18 12:32 Respiratory Rate 16 07/05/18 12:32 Blood Pressure 132/69 H 07/05/18 12:32 O2 Sat (%) 94 07/05/18 12:32 O2 Delivery Mode Room Air Allergies/Adverse Reactions: No Known Allergies Allergy (Verified 01/19/17 09:50) Home Medications: Medication Instructions Recorded Levothyroxine [Synthroid 50 mcg 50 mcg PO DAILY06 08/22/14 (*)] clonazePAM [klonoPIN (*)] 2 mg PO HS 08/22/14 Alendronate Sodium [Fosamax 70 MG 70 mg PO WARD@0700 01/19/17 (*)] C/E/Zn/Cu/OM3/DHA/EPA/LUT/ZEAX 2 each PO DAILY 01/19/17 [Preservision Areds 2 Softgel] Cholecalciferol Vit D3 [Vitamin D3 1,000 units PO DAILY 01/19/17 (*)] Herbals/Supplements -Info Only 1 ea PO DAILY 01/19/17 [place]-3 Fatty Acids [Fish Oil 1000 1,000 mg PO DAILY 01/19/17 mg (*)] Nitroglycerin [Nitrostat 0.4 mg 0.4 mg SL PRN PRN #1 btl 01/22/17 (*)] Cyanocobalamin [Vitamin B12 (*)] 1,000 mcg PO DAILY 07/05/18 Hydrocodone/APAP 5/325 [[place] 1 - 2 tab PO Q4-6PRN PRN 07/05/18 5/325 (*)] rOPINIRole HCL [Requip 1mg (*)] 1 mg PO BID 07/05/18 Medical Decision Making ED Course/Re-evaluation: Patient and son did not wish to have further workup. There seeking admission for act increased level of care and pain control. This is also been recommended by the primary care doctor Juan Ramon. I spoke with hospital service who will accept to Dr. Farnsworth. 2:30 p.m. patient is awaiting admission. She cried out for help and then requested food. We will place an IV in case medication is needed however currently she is not complaining of pain. Differential Diagnosis: Partial list of the Differential diagnosis considered include but were not limited to; failure to thrive, fracture, pain management and although unlikely based on the history and physical exam, I also considered the electrolyte abnormality, infection, vascular injury. - Data Points Medications Given: Acetaminophen (Tylenol) 650 mg PO Q4HRS PRN PRN Reason: Pain, Mild/Fever, Can Take PO Stop: 01/01/19 16:56 Last Admin: 07/05/18 19:36 Dose: 650 mg Clonazepam (Klonopin) 2 mg PO HS NAKIA Stop: 01/01/19 20:59 Last Admin: 07/05/18 19:36 Dose: 2 mg Heparin Sodium (Porcine) (Heparin Sc Injection) 5,000 unit SC Q8 NAKIA Stop: 01/01/19 21:59 Last Admin: 07/05/18 20:16 Dose: Not Given Ibuprofen (Motrin) 400 mg PO Q6HRS PRN PRN Reason: Pain, Mild Stop: 01/01/19 14:38 Last Admin: 07/05/18 14:43 Dose: 400 mg Ropinirole HCl (Requip) 1 mg PO BID [facility] Stop: 01/01/19 20:59 Last Admin: 07/05/18 19:36 Dose: 1 mg Departure - Departure Disposition: [facility] Clinical Impression: Failure to thrive in adult Closed fracture of left proximal humerus Qualifiers: Encounter type: initial encounter Fracture morphology: unspecified fracture morphology Qualified Code(s): S42.202A - Unspecified fracture of upper end of left humerus, initial encounter for closed fracture Condition: Fair
[2018-07-05] MEDS ORDERED: IBUPROFEN 200 MG TAB PO ONE (14:41)
[2018-07-05] MEDS: IBUPROFEN 200 MG TAB PO PRN (14:43)
[2018-07-05] MEDS ORDERED: NITROGLYCERIN 0.4 MG BTL SL PRN (16:56)
[2018-07-05] MEDS ORDERED: HYDROCODONE/APAP 5/325 TAB PO PRN (16:56)
[2018-07-05] MEDS ORDERED: ONDANSETRON 4 MG/2 ML VIAL IVP PRN (16:57)
[2018-07-05] MEDS ORDERED: ONDANSETRON DISINTEGRATING 4 MG TAB PO PRN (16:57)
--- NOTE | 2018-07-05 17:54 | PDGENHP ---
History and Physical - Chief Complaint weakness - History of Present Illness Patient is an 82-year-old female who fell on Sunday and has a proximal humeral head fracture. She followed up on Sunday with Orthopedics Dr. Tapia. She is in a sling and taking Vicodin at home. Today she and her son spoke with her PCP Dr. Delatorre. She has not succeeding at home. She cannot get out of bed because of pain. She lives alone her is in a correction. Dr. Delatorre called and requested that we admit her for placement. Since her injury she has been bed bound. She feels weak. She has generalized weakness. She has been taking adequate oral intake. She reports pain to her left arm. She denies fever. she denies cp, palpitations, or leg edema. She denies hx of CHF. She does have nocturnal hypoxemia and is typically on 2-3 liters O2 nocturnally. She has been feeling intermittently SOB. She denies N/V/ D/abd pain. PMHx: back pain, nocturnal hypoxemia, hypothyroidism Soc Hx: non smoker. originally from [facility] FmHx: non contributory History Information - Allergies/Home Medication List Allergies/Adverse Reactions: No Known Allergies Allergy (Verified 01/19/17 09:50) Home Medications: Levothyroxine [Synthroid 50 mcg (*)] 50 mcg PO DAILY06 08/22/14 [Last Taken ] clonazePAM [klonoPIN (*)] 2 mg PO HS 08/22/14 [Last Taken 07/04/18] Alendronate Sodium [Fosamax 70 MG (*)] 70 mg PO WARD@0700 01/19/17 [Last Taken 04/09] C/E/Zn/Cu/OM3/DHA/EPA/LUT/ZEAX [Preservision Areds 2 Softgel] 2 each PO DAILY [Last Taken Unknown] Cholecalciferol Vit D3 [Vitamin D3 (*)] 1,000 units PO DAILY 01/19/17 [Last Taken 01/18/17] Herbals/Supplements -Info Only 1 ea PO DAILY 01/19/17 [Last Taken Unknown] [place]-3 Fatty Acids [Fish Oil 1000 mg (*)] 1,000 mg PO DAILY 01/19/17 [Last Taken Unknown] Cyanocobalamin [Vitamin B12 (*)] 1,000 mcg PO DAILY 07/05/18 [Last Taken Unknown ] Hydrocodone/APAP 5/325 [[place] 5/325 (*)] 1 - 2 tab PO Q4-6PRN PRN 07/05/18 [ Last Taken 07/05/18] rOPINIRole HCL [Requip 1mg (*)] 1 mg PO BID 07/05/18 [Last Taken 07/05/18] I have personally reviewed and updated: medical history, social history - Social History Smoking Status: Never smoked Review of Systems Review of Systems: ROS: 10pt was reviewed & negative except for what was stated in HPI & below Physical Exam Physical Exam: Temp Pulse Resp BP Pulse Ox 37.4 C 78 18 153/84 H 94 07/05/18 16:34 07/05/18 16:34 07/05/18 16:34 07/05/18 16:34 07/05/18 16:34 O2 (L/minute) 1 Constitutional: no apparent distress Eyes: PERRL, EOMI Ears, Nose, Mouth, Throat: moist mucous membranes, hearing normal Cardiovascular: regular rate and rhythym, no murmur, rub, or gallop Respiratory: no respiratory distress, no rales or rhonchi, clear to auscultation Gastrointestinal: normoactive bowel sounds, soft, non-tender abdomen, no palpable masses Skin: warm Musculoskeletal: generalized weakness Neurologic: AAOx3 Psychiatric: interacting appropriately, not anxious, not encephalopathic Assessment & Plan Assessment: #Closed fracture of left proximal humerus -Non surgical mgmt #Failure to thrive in adult #Generalized weakness #Nocturnal Hypoxemia Plan: -no labs obtained in the ER, will check now -O2 as needed -Pain mgt -PT/OT -Looks euvolemic. Hemodynamically stable -conservative mgmt for fracture and f/u -will likely need SNF -DVT proph
[2018-07-05 18:31] LABS: PLATELET COUNT 179 10^3/uL (150-400)
[2018-07-05] MEDS: ACETAMINOPHEN 325 MG TAB PO PRN (19:36)
[2018-07-05] MEDS: HEPARIN 5,000 UNIT/0.5 ML INJ SC SCH (20:16)
[2018-07-05] MEDS ORDERED: NOREPINEPHRINE BITARTRATE 4 MG in NS 500 ML IV ONE (20:50)
[2018-07-05] MEDS ORDERED: NS 1,000 ML IV SCH (21:00)
[2018-07-05] MEDS ORDERED: clonazePAM 1 MG TAB PO SCH (21:00)
[2018-07-06] MEDS: HEPARIN 5,000 UNIT/0.5 ML INJ SC SCH (05:06)
[2018-07-06] MEDS ORDERED: CEPACOL LOZENGE PO PRN (05:17)
[2018-07-06] MEDS: ACETAMINOPHEN 325 MG TAB PO PRN ×2 (05:22→15:11)
[2018-07-06 05:33] LABS: PLATELET COUNT 184 10^3/uL (150-400)
[2018-07-06] MEDS ORDERED: LEVOTHYROXINE 50 MCG TAB PO SCH (06:00)
[2018-07-06] MEDS: IBUPROFEN 200 MG TAB PO PRN ×2 (08:46→15:10)
[2018-07-06] MEDS ORDERED: Herbals/Supplements -Info Only PO SCH (09:00)
[2018-07-06] MEDS ORDERED: OMEGA-3 FATTY ACIDS 1,000 MG CAP PO SCH (09:00)
[2018-07-06] MEDS ORDERED: PRESERVISION AREDS2 FORMULA EYE VIT 1 EACH PO SCH (09:00)
[2018-07-06] MEDS ORDERED: CHOLECALCIFEROL VIT D3 1,000 UNITS TAB PO SCH (09:00)
[2018-07-06] MEDS ORDERED: CYANO/VITAMIN B12 1000 MCG TAB PO SCH (09:00)
--- NOTE | 2018-07-06 10:25 | ASMTCMCOM ---
CM Note CM Note Notes: Spoke w/, pt admitted from ortho office, she is not managing well at home alone with broken arm, he recommends SNF. CM met with pt and dtr and they would like a referral sent to [facility]. DC Plan: Date Signed: 07/06/2018 10:24 AM Electronically Signed By:Nohemi Baxter RN
--- NOTE | 2018-07-06 14:12 | PDIAF ---
- Diagnosis Code Status: Full Code - Medication Management Discharge Medications: electronically signed and located in the Home Medication List. - Orders Services needed: Physical Therapy, Occupational Therapy Diet Recommendation: no restrictions on diet Diet Texture: Regular Texture Diet Additional Instructions: activity as tolerated. restart your home medications. see your primary care doctor in 1-2 weeks for follow up. - Follow Up Care Current Providers and Referrals: Patient,NotPresent [Unknown] - As per Instructions
--- NOTE | 2018-07-06 14:43 | PDDCSUM ---
Discharge Summary Discharge Summary: Alma Rosa colón is a 82 year old female admitted with a left humerus fracture. Her son was struggling to manage her care and was concerned she was too weak to manage at home. They went to their PCP who called and requested admission to [facility] so she could be placed in rehab. She did quite well here and CM was able to get her transferred to [facility] to complete PT/OT. GEN- NAD, HEENT- PERRLA, MMM pink and acyanotic. head atraumatic and normocephalic Lungs- CTABL CV- RRR, No MRG Abd- soft NT/ND, no guarding or rebound, normal BS, No organomegally Ext- No CC edema of calf pain skin- no rashes neuro- no focal deficits, CN-2-12 intact psych- mood/affect appropriate
--- NOTE | 2018-07-06 15:06 | ASMTLACE ---
LACE Length of stay for Answers: 1 day current admission Acuity / Level of Answers: No Care: Did the patient have an inpatient admission? Comorbidities - select Answers: Other Notes: Hypothyroid all that apply # of Emergency department Answers: 1-2 visits in the last 6 months Score: 3 Date Signed: 07/06/2018 03:06 PM Electronically Signed By:Nohemi Baxter RN
--- NOTE | 2018-07-06 15:39 | ASMTDCNOTE ---
Case Management Discharge Discharge Order Complete? Answers: Yes Patient to Obtain Answers: Other Notes: [facility] Transportation Arranged Answers: Other Transport will Pick (Date 07/06/2018 05:00 PM & Time) Faxed Final Orders Answers: Yes Agency/Facility Transfer Answers: Yes Report Printed & Faxed to Receiving Agency Family Notified Answers: Yes Discharge Comments Notes: [facility], final orders faxed. Damian at notified. RN to call report Date Signed: 07/06/2018 03:38 PM Electronically Signed By:Nohemi Baxter RN
[2018-07-06 16:33] VITALS: BP 129/80
--- NOTE | 2018-07-06 18:24 | ASDISCHSUM ---
Discharge Information Plan Status:SNF Medically Cleared to Leave: Discharge Date:07/06/2018 05:08 PM D/C Disposition:[facility] ADT D/C Disposition:[facility] Facility Projected Discharge Date:07/06/2018 11:00 AM Transportation at D/C:Wheelchair Van Discharge Delay Reason: Follow-Up Date:07/06/2018 11:00 AM Discharge Slot: Final Diagnosis: Placement Information Referral Type:*Group Home/SNF Referral ID:[id number] Provider Name:[facility] [address] Address 1:[address] Address 2: City:[place] Selection Factors: State:[place] Patient Contact Information Contact Name:RENNY Relationship:Son Address:[address] Work Phone: [facility]:[place] Alternate Phone: [facility]/Zip Code:[place] [address] Email: Financial Information Financial Class:Medicare Advantage Plans Primary Plan Desc:[facility] [employer] Primary Plan Number:[id number] Secondary Plan Desc: Secondary Plan Number: Assessment Information LACE LACE Length of stay for Answers: 1 day current admission Acuity / Level of Answers: No Care: Did the patient have an inpatient admission? Comorbidities - select Answers: Other Notes: Hypothyroid all that apply # of Emergency department Answers: 1-2 visits in the last 6 months Score: 3 Date Signed: 07/06/2018 03:06 PM Electronically Signed By:Nohemi Baxter RN [facility] Progress Note CM Note CM Note Notes: Spoke w/, pt admitted from ortho office, she is not managing well at home alone with broken arm, he recommends SNF. CM met with pt and dtr and they would like a referral sent to [facility]. DC Plan: Date Signed: 07/06/2018 10:24 AM Electronically Signed By:Nohemi Baxter RN Case Management Discharge Plan Note Case Management Discharge Discharge Order Complete? Answers: Yes Patient to Obtain Answers: Other Notes: [facility] Medications Transportation Arranged Answers: Other Transport will Pick (Date 07/06/2018 05:00 PM & Time) Faxed Final Orders Answers: Yes Agency/Facility Transfer Answers: Yes Report Printed & Faxed to Receiving Agency Family Notified Answers: Yes Discharge Comments Notes: D/w , final orders faxed. Damian at notified. RN to call report Date Signed: 07/06/2018 03:38 PM Electronically Signed By:Nohemi Baxter RN Intervention Information
[2018-07-07] MEDS ORDERED: ALENDRONATE SODIUM 70 MG TAB PO SCH (07:00)
== END 2018-07-06 17:08 ==
LOC: EDUNIT# → F3E 16:14
PROVIDERS: ADMIT Family Medicine; ATTEND Family Medicine
DX: R62.7 Adult failure to thrive (principal); S42.295A Other nondisplaced fracture of upper end of left humerus, initial encounter for closed fracture; R09.02 Hypoxemia; W19.XXXA Unspecified fall, initial encounter
CPT/HCPCS: 71045; 96372; 97116; 97161; 97165; 99285; G0378; G8978; G8979; G8987; G8988; J1644

== ENCOUNTER 2018-08-10 09:42 | Emergency (ER) | payer OTHER ==
--- NOTE | 2018-08-10 10:05 | EDPHY ---
General Time Seen by Provider: 08/10/18 09:51 Narrative: CLINICAL IMPRESSION: Chronic left, comminuted closed, proximal humerus fracture ASSESSMENT/PLAN: 82-year-old female presents to the emergency department with persistent left shoulder pain in the setting of a proximal left humerus fracture diagnosed approximately 1 month ago. Patient did see Orthopedics, was offered surgery verses supportive care, and reports she can no longer stand the pain. She was apparently placed in the an outpatient rehab facility following admission for her shoulder injury and would like to be placed back in a rehab facility. She lives independently in a 3 level home, her is in a skilled nursing. X-ray show essentially no change to fracture alignment. She is neurovascularly intact. No evidence of compartment syndrome. I placed her in a sling. Case Management met with the patient and determined that she can still return to rehab based on a recent admission. Patient will be discharged and plan to return to outpatient rehab with her daughter. Encouraged orthopedic follow-up for further management. Warning signs return to ED sooner outlined and discharge. DIFFERENTIAL DX: Differential includes but not limited to acute fracture, strain/sprain, joint dislocation, soft tissue contusion ED PROCEDURES: Procedure: Splint placement. A left arm sling splint was applied to left arm by auto emissions technician, supervised by myself. After application of the splint I returned and re-examined the patient. The splint was adequately immobilizing the joint and distal to the splint the patient's circulation and sensation was intact. ED COURSE: 10:15 a.m.: X-rays reviewed. Patient has a closed, comminuted, proximal humerus fracture and that does not appear significantly improved from previous x -rays. I will refer her back to Orthopedics. I will place her in a sling today. Neurovascular exam is intact. 10:20 a.m.. X-rays reviewed with the patient and her daughter. Patient is asking to be placed in a rehab facility. I will have case management meet with the patient and her daughter to explain available resources. She apparently was admitted after her initial fall and sent to rehab and then sent home. She lives in a 3 level home. She does have a chair to help her up and down the stairs. She does not use a cane or walker. I discussed with Valencia from case management who will visit with the family. CHIEF COMPLAINT: Persistent left shoulder pain HPI: Pleasant 82-year-old [id number] female presents to the emergency department with complaints of persistent left shoulder pain after ground level fall on 07/02/2018. Patient was seen at the [facility], had x-rays, and did follow-up with Orthopedics. She believes that she saw Dr. Tapia. She was told that she could let the fracture heal on its own or get surgery but that it would"be a very messy surgery". She only wore a sling for the 1st week and has been lightly using the arm. She has been doing physical therapy twice weekly at her home. She reports her pain is persistent. No worsening pain. No reports of numbness or loss of sensation to the arm hand or fingers. No neck pain. She has not followed up with Orthopedics again. PAST MEDICAL HISTORY: Chronic back pain, osteoporosis, frequent falls Pertinent Past Surgical History: None reported Social History: Lives alone at home REVIEW OF SYSTEMS: All other systems negative Constitutional: No fever, no chills Musculoskeletal: No deformity, + joint pain Skin: No rashes, color change or open wounds. Neurological: No sensory loss or weakness. PHYSICAL EXAM: General Appearance: Alert, oriented, appropriate for age, cooperative, NAD, well hydrated, non-toxic appearing, VSS, no hypoxia. Neurological: Alert and oriented x 3, normal sensation and strength of extremities Skin: Warm, dry, no rashes, no nodules on palpation. Musculoskeletal: Reproducible pain to left proximal humerus, no obvious deformity. Normal range of motion of the elbow, normal supination and pronation. Normal extension and flexion of the wrist. Construction Project Assistant strength 3/5 bilaterally, distal neurovascular exam intact MEDICAL DECISION MAKING: Patient was seen independently. Secondary supervising physician at time of evaluation was Dr. Jin . Diagnosis: Chronic, closed, left proximal humerus fracture. New, requires workup Summary: See assessment and plan for summary of ED visit Independent visualization of images, tracing, or specimens yes. Decision to obtain medical records or history from someone other than the patient: Patient's daughter Review / Summarize previous medical records: Reviewed last ED notes Discussed patient with another provider: Case management Patient Progress: Stable. - Diagnostics Imaging Results: Imaging Impressions Humerus X-Ray 08/10/18 09:53 Impression: No obvious acute abnormality identified. There may be laxity of the shoulder joint which remains located. Please see above. - History Smoking Status: Never smoked - Objective Vital Signs: Initial Vital Signs Temperature (C) 36.8 C 08/10/18 09:44 Heart Rate 67 08/10/18 09:44 Respiratory Rate 18 08/10/18 09:44 Blood Pressure 160/65 H 08/10/18 09:44 O2 Sat (%) 90 L 08/10/18 09:44 O2 Delivery Mode Room Air Allergies/Adverse Reactions: No Known Allergies Allergy (Verified 08/10/18 09:50) Home Medications: Medication Instructions Recorded Levothyroxine [Synthroid 50 mcg 50 mcg PO DAILY06 08/22/14 (*)] clonazePAM [klonoPIN (*)] 2 mg PO HS 08/22/14 Alendronate Sodium [Fosamax 70 MG 70 mg PO WARD@0700 01/19/17 (*)] C/E/Zn/Cu/OM3/DHA/EPA/LUT/ZEAX 2 each PO DAILY 01/19/17 [Preservision Areds 2 Softgel] Cholecalciferol Vit D3 [Vitamin D3 1,000 units PO DAILY 01/19/17 (*)] Herbals/Supplements -Info Only 1 ea PO DAILY 01/19/17 [place]-3 Fatty Acids [Fish Oil 1000 1,000 mg PO DAILY 01/19/17 mg (*)] Nitroglycerin [Nitrostat 0.4 mg 0.4 mg SL PRN PRN #1 btl 01/22/17 (*)] Cyanocobalamin [Vitamin B12 (*)] 1,000 mcg PO DAILY 07/05/18 Hydrocodone/APAP 5/325 [[place] 1 - 2 tab PO Q4-6PRN PRN 07/05/18 5/325 (*)] rOPINIRole HCL [Requip 1mg (*)] 1 mg PO BID 07/05/18 Heparin [Heparin SC 5000 unit/0.5 5,000 unit SC Q8 10 Days #15 inj 07/06/18 ml (*)] Hydrocodone/APAP 5/325 [[place] 1 tab PO Q6H PRN #8 tab 08/10/18 5/325 (*)] Departure - Departure Disposition: Home, Routine, Self-Care Clinical Impression: Shoulder pain, left Qualifiers: Chronicity: chronic Qualified Code(s): M25.512 - Pain in left shoulder Condition: Fair Instructions: Hydrocodone/Acetaminophen (By mouth), Shoulder Pain (ED), Proximal Humerus Fracture (ED) Additional Instructions: DISCHARGE INSTRUCTIONS FROM YOUR DOCTOR Thank you for visiting our emergency department today. Please keep in mind that discharge from the emergency department does not mean that there is nothing wrong - it simply means that we have not identified an emergency condition that requires further evaluation or treatment in the hospital. You should always plan to follow up with primary care for re-evaluation of your condition in the next 2-3 days. If you have been referred to a specialist, please call as soon as possible (today or tomorrow) to schedule your follow up appointment at the appropriate time. YOUR X-RAY IS ESSENTIALLY UNCHANGED FROM [facility] EARLIER LAST JUNE. GIVEN THAT YOUR PAIN IS PERSISTENT, WE RECOMMEND THAT YOU FOLLOW UP WITH ORTHOPEDICS. DR. TAPIA IS ON-CALL TODAY BUT YOU CAN SEE WHOMEVER YOU INITIALLY SAW. WE STRONGLY RECOMMEND THAT YOU TRY CONSERVATIVE MANAGEMENT FOR PAIN INCLUDING SLING , LIDODERM PATCHES, AND TYLENOL. I GAVE YOU A VERY SMALL AMOUNT OF NARCOTIC PAIN MEDICATION TO USE ONLY FOR BREAKTHROUGH PAIN. PLEASE BE AWARE THAT THIS WILL CAUSE DIZZINESS, SEDATION, AND CAN INCREASE HER RISK OF FALLING. DO NOT DRIVE OR DRINK ALCOHOL WHILE TAKING NARCOTIC PAIN MEDICATION. PLEASE BE AWARE, NARCOTICS CAN CAUSE CONSTIPATION, LETHARGY, AND INCREASE YOUR RISK OF FALLING. DO NOT TAKE TYLENOL AT THE SAME TIME VICODIN OR PERCOCET. PLEASE CONTACT ORTHOPEDICS ON SUNDAY FOR A FOLLOW-UP APPOINTMENT. YOU MET WITH OUR HOT KNIFE FOXING CUTTER TODAY WHO GAVE RESOURCES FOR ADDITIONAL HELP AT HOME. PLEASE RETURN TO THE EMERGENCY DEPARTMENT FOR WORSENING PAIN, LOSS OF SENSATION TO THE ARM HAND OR FINGERS, WEAKNESS, FEVERS OR ANY OTHER CONCERN. People present with illnesses and injuries in different ways, and it is always possible that we have missed something. You may always return for re-evaluation if symptoms worsen or if they are not improving or if you develop new/different symptoms. Again, thank you for choosing our emergency department. We hope that you feel better. Referrals: Nava Delatorre MD [Primary Care Provider] - As per Instructions Romeo Tapia MD [Medical Doctor] - 2-3 days without fail Prescriptions: Hydrocodone/APAP 5/325 [[place] 5/325 (*)] 1 tab PO Q6H PRN #8 tab PRN Reason: Pain, Moderate
[2018-08-10 11:40] VITALS: BP 114/78
--- NOTE | 2018-08-10 12:07 | ASMTCMCOM ---
CM Note CM Note Notes: Patient presents to ED with her daughter Armani due to c/o increasing shoulder pain. Patient was discharged home from [facility] recently with [facility]. Per Armani, patient is having too much pain to navigate in her 3 story home at this time. Patient and Armani believe that patient is able to return home with HH once her discomfort, and hence mobility, is improved. See ED report for details regarding x-ray (no further injury noted) and recommendation for follow up with orthopedics. This CM contacted Sloan at [facility] and have sent a new referral via [facility]. for return to SNF. Due to patient's Medicare ([place]), authorization is needed for SNF return despite patient being within the 30 day window for return. Sloan states that she will contact [facility] directly regarding visiting patient today and/or tomorrow at home, with likely authorization for return to SNF by Sunday. I have discussed above with Armani and she is comfortable with taking patient home with a plan to return to once authorization is received. She understands that this may not occur before Sunday. Armani lives in [place] and is available to assist patient at home over the weekend. She is aware that Sloan will be reaching out to [facility] to arrange HH visits over the weekend. Patient will discharge home with her daughter at this time. Armani will arange follow up with orthopedics this week and communicate with Sloan egarding return to SNF. Date Signed: 08/10/2018 12:07 PM Electronically Signed By:Valencia Jarrell RN
--- NOTE | 2018-08-10 15:19 | ASMTCMCOM ---
CM Note CM Note Notes: This CM received call back from Yola at [facility] . See CM note from earlier today Yola confirms that patient has been followed with PT/OT HH since her discharge from on . Yola states that she discussed adding non medical HH services for patient with patient's son Ousmane. Bill evidently sgreeed with this assessment as patient does have some memory issues and would likely benefit from help with housework and reminders about wearing her sling, etc. Yola confirms that she will contact patient's daughter Armani at this time to discuss this further as well as to arrange PT HH visits for the weekend while waiting for authorization for return to . CM available fro further needs prn Date Signed: 08/10/2018 03:18 PM Electronically Signed By:Valencia Jarrell RN
== END 2018-08-10 11:46 | disposition home or self-care (01) ==
DX: S42.202A Unspecified fracture of upper end of left humerus, initial encounter for closed fracture (principal); W19.XXXA Unspecified fall, initial encounter; Y92.9 Unspecified place or not applicable; Y99.9 Unspecified external cause status; Y93.9 Activity, unspecified

== ENCOUNTER 2018-08-11 00:27 | Observation (INO) | payer OTHER ==
[2018-08-11] MEDS ORDERED: LIDOCAINE 4%/MENTHOL 1% PATCH TD ONE (01:12)
[2018-08-11] MEDS ORDERED: ONDANSETRON DISINTEGRATING 4 MG TAB PO PRN (01:24)
[2018-08-11] MEDS ORDERED: ONDANSETRON 4 MG/2 ML VIAL IVP PRN (01:24)
[2018-08-11] MEDS ORDERED: oxyCODONE IR 5 MG TAB PO PRN (01:27)
--- NOTE | 2018-08-11 01:31 | EDPHY ---
General Time Seen by Provider: 08/11/18 01:00 Narrative: CLINICAL IMPRESSION: Acute on chronic lumbar back pain, acute on chronic left humerus pain ASSESSMENT/PLAN: Patient is an 82-year-old female with a history of chronic back pain as well as remote proximal humeral fracture who presents to the emergency department with uncontrolled lumbar back pain. Patient is uncomfortable appearing however not toxic-appearing. Her neurological exam is grossly normal with no focal deficit , she is tender in the midline lumbar spine. Lumbar spinal x-ray was preliminarily reviewed- I did not see any obvious fracture or subluxation, formal read still pending. A Lidoderm patch was placed in the emergency department. Patient was seen and evaluated less than 24 hrs prior for persistent and ongoing left upper arm pain; was deemed appropriate for discharge with continued outpatient rehabilitation. Since that time has had progressive and uncontrolled lumbar back pain. Baseline laboratory studies were obtained- CBC with no evidence of leukocytosis, anemia at baseline. BMP grossly unremarkable without evidence of metabolic abnormality or acute kidney injury. There were no findings to suggest epidural abscess or hematoma, epidural compression syndrome or cauda equina. The patient will be admitted to the hospitalist service as she is not succeeding at home in conjunction with her intractable pain. The patient remained hemodynamically stable while in the emergency department. I talked to Dr. Rios who will be the admitting physician. DIFFERENTIAL DX: Back pain including but not limited to muscular pain, herniated disc, spine fracture, intra-abdominal causes and urinary tract infection. ED COURSE: 0005: Case discussed with Dr. Saunders 0145: PDMP reviewed, patient prescribed 120 hydrocodone in a 1 month period. CHIEF COMPLAINT: Lumbar back pain, left arm pain HPI: Patient is an 82-year-old female with a history of chronic lumbar back pain, remote comminuted left proximal humerus fracture, nocturnal hypoxemia and hypothyroidism presents to the emergency department with an acute exacerbation of her lumbar back pain. Patient has been living at home on the 3 level residence since her fall 6 weeks ago. She has had limited mobility and at times is crawling around favoring her left arm. She has been sleeping in a recliner. Patient reports this morning when she tried to get out of the recliner she was having significant lumbar back pain exactly like episodes that she has had in the past. She denies any injury, trauma or recent fall. She has had no fevers, chills, chest pain, shortness of breath or abdominal pain. She denies any urinary symptoms to include dysuria, hematuria or frequency. Patient denies saddle paresthesias, lower extremity numbness, tingling, major motor weakness, urinary retention or bowel/bladder incontinence. Patient was seen and evaluated in our emergency department less than 24 hr ago for persistent and ongoing left upper arm pain. Patient had a repeat humerus x- ray which showed no real improvement however no evidence of acute component. Case management was consulted and was deemed appropriate for outpatient physical therapy management. PMH: Chronic low back pain, nocturnal hypoxemia, hypothyroidism Family History: Noncontributory Social History: Denies alcohol, illicit drug use REVIEW OF SYSTEMS: All other systems negative Constitutional: No fever, no chills, appetite change. Eyes: No discharge, vision change ENT: No sore throat, congestion, ear pain. Cardiovascular: No chest pain, no palpitations. Respiratory: No cough, no shortness of breath. Gastrointestinal: No abdominal pain, no vomiting, diarrhea. Genitourinary: No hematuria, dysuria, flank pain, pelvic pain Musculoskeletal: Back pain, left arm pain. No joint swelling, joint pain, myalgias. Skin: No rashes, color change. Neurological: No headache, dizziness, weakness. PHYSICAL EXAM: General Appearance: HENT: Normocephalic, atraumatic. Bilateral external ears are normal. Bilateral tympanic membranes are normal with pearly ann reflex. Nares are clear, mucosa is pink. Oropharynx is clear, mucosa dry, uvula is midline. There is no tonsillar enlargement or exudate. The dentition is normal. Eyes: PERRLA, no acute vision change, nystagmus, swelling, discharge, pain or photosensitivity. Conjunctiva pink, no pallor or injection Neck: Supple, nontender, no lymphadenopathy, no midline pain, FROM, no meningismus. Respiratory: There are no retractions, lungs are clear to auscultation. Cardiac: Regular rate and rhythm, no murmurs or gallops. Gastrointestinal: Abdomen is soft, nontender, bowel sounds normal, no masses/ hernia, no rigidity, guarding or focal peritoneal findings. Back: No step-off, palpable bony abnormality, edema, erythema or ecchymosis of the cervical, thoracic or lumbar spines. TTP: Mid lumbar spine. No thoracic spinal tenderness to palpation. Limited ROM of lumbar spine due to pain- patient was able to roll onto side however had significant pain with trying to sit up straight. 4/5 and equal strength of the UEs and LEs bilaterally including shoulder shrug. Pulses: 2+ and equal radial, DP and PT pulses bilaterally. Sensation intact and symmetric to light touch from face, UEs and LEs bilaterally. Straight leg raise negative bilaterally. NON-traumatic Back Pain Pathway Low/medium concern for Acute Spinal Emergency (ASE) High Sensitivity Neuro Exam (HSNE) Lumbar pain L1: inner thigh sensation- no deficit L2: ADduct thigh (cross legs) - no deficit L3: Extend knee- no deficit L4: Ankle dorsiflexion- no deficit L5: Great toe extension- no deficit S1: Flex knee- no deficit S3-4: bladder/bowel function- no dysfunction Neurological: Alert and oriented x 3, CN 2-12 grossly intact, normal sensation. Skin: Warm, dry, no rashes, no nodules on palpation. Musculoskeletal: Extremities are symmetrical, full range of motion, no tenderness, deformity, swelling, or erythema. Psychiatric: Patient is oriented X 3, there is no agitation. MEDICAL DECISION MAKING: Patient was seen independently. Secondary supervising physician at time of evaluation was Dr. Saunders. Diagnosis: Acute on chronic lumbar back pain, acute on chronic left arm pain with known comminuted proximal humerus fracture. New, requires workup Summary: See Assessment and Plan for summary of ED visit Clinical lab tests: ordered / reviewed. Independent visualization of images, tracing, or specimens: Yes. Decision to obtain medical records or history from someone other than the patient: Yes Review / Summarize previous medical records: Yes Discussed patient with another provider: Yes, Dr. Saunders, Dr. Rios Patient Progress: Stable, admit. - History Smoking Status: Never smoked - Objective Vital Signs: Initial Vital Signs Temperature (C) 36.5 C 08/11/18 00:39 Heart Rate 72 08/11/18 00:39 Respiratory Rate 18 08/11/18 00:39 Blood Pressure 138/67 H 08/11/18 00:39 O2 Sat (%) 91 L 08/11/18 00:39 O2 Delivery Mode Room Air Allergies/Adverse Reactions: No Known Allergies Allergy (Verified 08/10/18 09:50) Home Medications: Medication Instructions Recorded Levothyroxine [Synthroid 50 mcg 50 mcg PO DAILY06 08/22/14 (*)] clonazePAM [klonoPIN (*)] 2 mg PO HS 08/22/14 Alendronate Sodium [Fosamax 70 MG 70 mg PO WARD@0700 01/19/17 (*)] C/E/Zn/Cu/OM3/DHA/EPA/LUT/ZEAX 2 each PO DAILY 01/19/17 [Preservision Areds 2 Softgel] Cholecalciferol Vit D3 [Vitamin D3 1,000 units PO DAILY 01/19/17 (*)] Herbals/Supplements -Info Only 1 ea PO DAILY 01/19/17 [place]-3 Fatty Acids [Fish Oil 1000 1,000 mg PO DAILY 01/19/17 mg (*)] Nitroglycerin [Nitrostat 0.4 mg 0.4 mg SL PRN PRN #1 btl 01/22/17 (*)] Cyanocobalamin [Vitamin B12 (*)] 1,000 mcg PO DAILY 07/05/18 Hydrocodone/APAP 5/325 [[place] 1 - 2 tab PO Q4-6PRN PRN 07/05/18 5/325 (*)] rOPINIRole HCL [Requip 1mg (*)] 1 mg PO BID 07/05/18 Hydrocodone/APAP 5/325 [[place] 1 tab PO Q6H PRN #8 tab 08/10/18 5/325 (*)] Medications Given: Discontinued Medications Miscellaneous Medication (Icy Hot Lidocaine/Menthol 4%/1% Patch) 1 patch TD EDNOW ONE Stop: 08/11/18 01:13 Last Admin: 08/11/18 01:15 Dose: 1 patch Departure - Departure Disposition: [facility] Clinical Impression: Acute exacerbation of chronic low back pain, Chronic pain of left upper extremity
[2018-08-11 01:51] LABS: PLATELET COUNT 243 10^3/uL (150-400)
--- NOTE | 2018-08-11 01:57 | PDGENHP ---
History and Physical - Chief Complaint Back pain - History of Present Illness 82 yo F w/ chronic back pain, hypothyroid, and anxiety presents with back pain. The patient presented here last month after after being referred by her PCP for placement. She was sent to [facility] for rehab and returned home one week ago. It seems she has been doing very poorly at home. She has ongoing back pain and arm pain related to her L humeral fracture. Her speech is quite slowed during my evaluation but she is oriented. Review of PDMP reveals >120 [place] tabs prescribed over the last month. She is also on daily clonazepam for anxiety. She presents today with back pain, difficulty completing ADLs, and ongoing arm pain. It is not clear to me how much of this is new. Case discussed with ED NAWAF Rodas; records reviewed and summarized above. History Information - Allergies/Home Medication List Allergies/Adverse Reactions: No Known Allergies Allergy (Verified 08/10/18 09:50) Home Medications: Levothyroxine [Synthroid 50 mcg (*)] 50 mcg PO DAILY06 08/22/14 [Last Taken ] clonazePAM [klonoPIN (*)] 2 mg PO HS 08/22/14 [Last Taken 07/04/18] Alendronate Sodium [Fosamax 70 MG (*)] 70 mg PO WARD@0700 01/19/17 [Last Taken 04/09] C/E/Zn/Cu/OM3/DHA/EPA/LUT/ZEAX [Preservision Areds 2 Softgel] 2 each PO DAILY [Last Taken Unknown] Cholecalciferol Vit D3 [Vitamin D3 (*)] 1,000 units PO DAILY 01/19/17 [Last Taken 01/18/17] Herbals/Supplements -Info Only 1 ea PO DAILY 01/19/17 [Last Taken Unknown] [place]-3 Fatty Acids [Fish Oil 1000 mg (*)] 1,000 mg PO DAILY 01/19/17 [Last Taken Unknown] Cyanocobalamin [Vitamin B12 (*)] 1,000 mcg PO DAILY 07/05/18 [Last Taken Unknown ] Hydrocodone/APAP 5/325 [[place] 5/325 (*)] 1 - 2 tab PO Q4-6PRN PRN 07/05/18 [ Last Taken 12/14/18] rOPINIRole HCL [Requip 1mg (*)] 1 mg PO BID 07/05/18 [Last Taken 07/05/18] I have personally reviewed and updated: family history, medical history - Past Medical History Additional medical history: Anxiety. Chronic back pain. Hypothyroid - Surgical History Reports: no pertinent surgical hx - Family History Positive for: CAD - Social History Smoking Status: Never smoked Review of Systems Review of Systems: ROS: 10pt was reviewed & negative except for what was stated in HPI & below Physical Exam Physical Exam: Temp Pulse Resp BP Pulse Ox 36.5 C 72 18 138/67 H 91 L 08/11/18 00:39 08/11/18 00:39 08/11/18 00:39 08/11/18 00:39 08/11/18 00:39 Constitutional: chronically ill appearing, uncomfortable Eyes: PERRL, EOMI Ears, Nose, Mouth, Throat: moist mucous membranes, no oral mucosal ulcers Cardiovascular: regular rate and rhythym, no murmur, rub, or gallop, edema (1+ b /l SWEETIE) Respiratory: no respiratory distress, clear to auscultation Gastrointestinal: normoactive bowel sounds, soft, non-tender abdomen Skin: warm, normal color Musculoskeletal: pain with ROM, muscular tenderness Neurologic: AAOx3, other (Slowed mentation) Psychiatric: interacting appropriately, not anxious Lab Data & Imaging Review 08/11/18 01:40 08/11/18 01:40 WBC 5.54 10^3/uL (3.80-9.50) 08/11/18 01:40 RBC 4.15 10^6/uL (4.18-5.33) L 08/11/18 01:40 Hgb 8.8 g/dL (12.6-16.3) L 08/11/18 01:40 Hct 28.2 % (38.0-47.0) L 08/11/18 01:40 MCV 68.0 fL (81.5-99.8) L 08/11/18 01:40 MCH 21.2 pg (27.9-34.1) L 08/11/18 01:40 MCHC 31.2 g/dL (32.4-36.7) L 08/11/18 01:40 RDW 15.7 % (11.5-15.2) H 08/11/18 01:40 Plt Count 243 10^3/uL (150-400) 08/11/18 01:40 MPV 10.3 fL (8.7-11.7) 08/11/18 01:40 Neut % (Auto) 57.6 % (39.3-74.2) 08/11/18 01:40 Lymph % (Auto) 28.5 % (15.0-45.0) 08/11/18 01:40 Potter % (Auto) 9.9 % (4.5-13.0) 08/11/18 01:40 Eos % (Auto) 3.1 % (0.6-7.6) 08/11/18 01:40 Baso % (Auto) 0.5 % (0.3-1.7) 08/11/18 01:40 Nucleat RBC Rel Count 0.0 % (0.0-0.2) 08/11/18 01:40 Absolute Neuts (auto) 3.19 10^3/uL (1.70-6.50) 08/11/18 01:40 Absolute Lymphs (auto) 1.58 10^3/uL (1.00-3.00) 08/11/18 01:40 Absolute Monos (auto) 0.55 10^3/uL (0.30-0.80) 08/11/18 01:40 Absolute Eos (auto) 0.17 10^3/uL (0.03-0.40) 08/11/18 01:40 Absolute Basos (auto) 0.03 10^3/uL (0.02-0.10) 08/11/18 01:40 Absolute Nucleated RBC 0.00 10^3/uL (0-0.01) 08/11/18 01:40 Immature Gran % 0.4 % (0.0-1.1) 08/11/18 01:40 Immature Gran # 0.02 10^3/uL (0.00-0.10) 08/11/18 01:40 Assessment & Plan Assessment: 82 yo F w/ chronic back pain, L humeral fracture, and anxiety presents with back pain and inability to care for herself at home. Plan: 1. Acute on chronic back pain - The patient has long standing back pain; this has flared over the last week after returning home from SNF. I suspect this is due to lack of adequate assistance at home. - XR L-spine for evaluation - Conservative pain control with APAP 1 g q8h gigi, Celebrex BID, and lidocaine patch - Oxycodone 5 mg BID PRN for breakthrough 2. Acute toxic encephalopathy - Patient with slowed mentation and slurred speech although she is oriented. I suspect this is due to sedating medications. Review of PDMP demonstrates >120 [place]'s prescribed over the last month as well as daily clonazepam. - Conservative pain control as above - Would benefit from a clonazepam wean 3. L humeral fracture - Suffered last month, treated non-surgically. She is still having significant pain and this is limiting her ability to perform ADLs. 4. Microcytic Anemia - Hgb 8.8 on admission, relatively stable from prior. - Check ferritin, B12 with morning labs - If VALERY, will likely need outpatient colonoscopy 5. Anxiety - on clonazepam as an outpatient. Diet - Regular Code - Full Ppx - SCDs Dispo - Admit under observation status
[2018-08-11 05:05] LABS: PLATELET COUNT 215 10^3/uL (150-400)
[2018-08-11] MEDS: ACETAMINOPHEN 500 MG TAB PO SCH ×3 (07:25→22:08)
[2018-08-11] MEDS: ENOXAPARIN 40 MG/0.4 ML SYR SC SCH (07:26)
[2018-08-11] MEDS: oxyCODONE IR 5 MG TAB PO PRN ×2 (07:27→20:31)
--- NOTE | 2018-08-11 14:12 | ASMTCMCOM ---
CM Note CM Note Notes: Pt is an 82 yo F. was recently here last month and discharged to [facility]. Pt was discharged from [facility] one week ago and has been home with her son. Dispo needs TBD at this time. CM to follow. Plan: TBD Date Signed: 08/11/2018 02:12 PM Electronically Signed By:CHELITA Felipe
--- NOTE | 2018-08-11 16:15 | ASMTCMCOM ---
HUGO Note HUGO Note Notes: CM spoke with . She reports she spoke with son who reports [facility] has a bed for pt for tomorrow. CM left messages for Lesia and Damian at [facility] and submit referral through [email or web address]. Waiting response. Plan: [facility] Date Signed: 08/11/2018 04:14 PM Electronically Signed By:CHELITA Felipe
--- NOTE | 2018-08-11 18:44 | HOSPPROG ---
Hospitalist Progress Note Assessment/Plan: 82 yo F w/ chronic back pain, L humeral fracture, and anxiety presents with back pain and inability to care for herself at home. Plan: 1. Acute on chronic back pain - new L4 compression fracture on xray - Conservative pain control with APAP 1 g q8h gigi, Celebrex BID, and lidocaine patch - Oxycodone 5 mg BID PRN for breakthrough -PT/OT evals pending -consider IR consult for kyphoplasty if ongoing pain -plan for SNF at discharge (CM to confirm with son and [facility]) 2. Acute toxic encephalopathy - Patient with slowed mentation and slurred speech at admission. Lots of sedating medications. -Review of PDMP demonstrates >120 [place]'s prescribed over the last month as well as daily clonazepam. - Conservative pain control as above - decrease nightly clonazepam dose 3. L humeral fracture last month, treated non-surgically. -She is still having significant pain and this is limiting her ability to perform ADLs. -PT/OT evals -may need re-eval with ortho also 4. Microcytic Anemia, chronic (hx thalassemia per chart review) - Hgb 8.8 on admission, relatively stable from prior but follow/consider transfusion if decreasing -history of thalassemia per chart review -check iron for completeness 5. Anxiety - on nightly clonazepam as an outpatient -decreasing dose tonight, see above 6. Hx AR -louder murmur -echo ordered as none prev in [email or web address] (had cath 2016) Diet - Regular Code - Full Ppx - SCDs Dispo - Admit under observation status, [facility] at discharge/CM coordinating FYI Frisian is her quechan language although fluent in Faroese she talks more when spoken to in Frisian Subjective: Known to me from prev admission. Says worried about pain and inability to move easily. Says pain OK with meds. No CP/SOB/n/v/d. Spoke with her son Ousmane, plan was to return to [facility] but it wasnt finalized yet. Objective: Vital Signs Temp Pulse Resp BP Pulse Ox 97.9 F 64 14 122/60 H 93 08/11/18 16:00 08/11/18 16:00 08/11/18 16:00 08/11/18 16:00 08/11/18 16:00 Laboratory Results 08/11/18 04:34 08/11/18 01:45 08/10/18 08/11/18 08/12/18 11:59 11:59 11:59 Output Total 900 Balance -900 - Time Spent With Patient Time Spent with Patient: greater than 35 minutes Time Spent with Patient: Greater than 35 minutes spent on this patients care, greater than 50% of time spent counseling, educating, and coordinating care regarding the above mentioned plan. - Physical Exam Constitutional: no apparent distress, appears nourished Eyes: anicteric sclera, EOMI Ears, Nose, Mouth, Throat: moist mucous membranes, hearing normal Cardiovascular: regular rate and rhythym, systolic murmur (heard in [address] Boucher note as 07/28, now 2-09/25 ) Respiratory: no respiratory distress, no rales or rhonchi, clear to auscultation Gastrointestinal: normoactive bowel sounds, soft, non-tender abdomen Musculoskeletal: other (L arm in sling) Psychiatric: interacting appropriately, anxious ICD10 Worksheet Patient Problems: Problems Problem Status Onset Acute exacerbation of chronic low back pain Acute Chronic pain of left upper extremity Acute Chest pain Acute Closed fracture of left proximal humerus Acute Failure to thrive in adult Acute
[2018-08-11] MEDS: CYANO/VITAMIN B12 1000 MCG TAB PO SCH (19:08)
[2018-08-11] MEDS ORDERED: PATCH REMOVAL 1 EA PATCH TD SCH ×2 (21:00)
[2018-08-11] MEDS ORDERED: clonazePAM 0.5 MG TAB PO SCH (21:00)
[2018-08-11] MEDS ORDERED: clonazePAM 1 MG TAB PO SCH (21:00)
[2018-08-12] MEDS: ACETAMINOPHEN 500 MG TAB PO SCH ×2 (05:47→15:49)
[2018-08-12] MEDS ORDERED: LEVOTHYROXINE 50 MCG TAB PO SCH (06:00)
[2018-08-12 08:07] VITALS: BP 141/60
[2018-08-12] MEDS ORDERED: LIDOCAINE 4%/MENTHOL 1% PATCH TD SCH (09:00)
[2018-08-12] MEDS ORDERED: CHOLECALCIFEROL VIT D3 1,000 UNITS TAB PO SCH (09:00)
[2018-08-12] MEDS: CYANO/VITAMIN B12 1000 MCG TAB PO SCH (09:02)
[2018-08-12] MEDS: oxyCODONE IR 5 MG TAB PO PRN (09:02)
[2018-08-12] MEDS: ENOXAPARIN 40 MG/0.4 ML SYR SC SCH (09:05)
--- NOTE | 2018-08-12 12:56 | ECHO ---
[email or web address] [address] [address] Main: [phone] Fax: Transthoracic Echocardiogram Name: ALICIA JORGE MR#: [id number] Study Date: 08/12/2018 Study Time: 08:24 AM Date of : 1935 Age: 82 year(s) Height: 142.2 cm (56 in.) Weight: 72.12 kg (159 lb.) BSA: 1.61 m2 Gender: Female Examination: Indication: fatigue, louder murmur (hx AR) Image Quality: Technically Difficult Contrast: Requested by: Ynes Parikh BP: 141 mmHg/60 mmHg Heart Rate: Rhythm: Indication: fatigue, louder murmur (hx AR) Procedure Staff Button Maker: Mae Trejo RD Reading Physician: Jian Boucher MD Requesting Provider: Conclusions: Normal size left ventricle. Normal global systolic LV function. EF is 60 %. No regional wall motion abnormality. Normal diastolic LV function. Mild mitral annular calcification. Mild mitral valve regurgitation is present. Moderate aortic cusp calcification is present. Moderate-severe aortic valve stenosis. Aortic valve mean gradient is 34 mmHg. Trivial to mild tricuspid valve regurgitation. Right ventricular systolic pressure measures 34mmHg. Measurements: Chambers Valvular Assessment AV/MV Valvular Assessment TV/PV Normal Normal Normal Name Value Range Name Value Range Name Value Range Ao Annabel (2D): 3.0 cm (1.4 cm-2.6 AV Vmax: 3.50 m/s (1 m/s-1.7 TR Vmax: 2.43 mm/s ( - ) cm) m/s) TR PGmax: 24 mmHg ( - ) IVSd (2D): 1.1 cm (0.6 cm-1.1 AV maxP mmHg ( - ) syst. PAP: 34 mmHg ( - ) cm) AV meanP mmHg ( - ) PV Vmax: 0.75 m/s (0.6 m/s-0.9 LVDd (2D): 4.9 cm (3.9 cm-5.3 PIO (VTI): 0.8 cm ( - ) m/s) cm) MV E Vmax: 0.86 m/s ( - ) PV PGmax: 2 mmHg ( - ) LVDs (2D): 3.7 cm (2.1 cm-4 MV A Vmax: 0.95 m/s ( - ) cm) MV E/A: 0.91 ( - ) LVPWd (2D): 1.0 cm ( - ) MV meanP mmHg ( - ) LVOTd 2.0 cm 2.0 cm mm MV PHT: 0.079 s ( - ) LVEF (BP): 60 % (>=55 %) MVA (Vmax): 2.2 m/s ( - ) RVDd(2D): 3.1 cm (1.9 cm-3.8 cmmm) MVA (PHT): 2.8 s ( - ) Patient: ALICIA JORGE Study Date: 08/12/2018 Page 1 of 2 08:24 AM Continued Measurements: Chambers Valvular Assessment AV/MV Valvular Assessment TV/PV Name Value Name Value Name Value LADs: 4.0 cm MV DecTime: 243 m/s CVP (est.): 10 mmHg LADs Lon.4 cm MV E' Septal: 0.06 m/s LA Area: 15.7 cm2 MV E/E' Septal: 14.50 LA Volume: 45 ml MV E/E' Lateral: 13.40 LA Volume Index: 28.0 ml/m2 MV VTI: 36.80 cm RA Area: 16.0 cm2 Additional Vessels Name Value Inferior Vena Cava: 1.4 cm Findings: Left Ventricle: Normal size left ventricle. No LV hypertrophy. Normal global systolic LV function. EF is 60 %. No regional wall motion abnormality. Normal diastolic LV function. Right Ventricle: Normal size right ventricle. Normal RV function. Left Atrium: The left atrium is normal in size. Right Atrium: The right atrium is normal in size. Mitral Valve: The mitral valve is normal in appearance. Mild mitral annular calcification. Mild mitral valve regurgitation is present. No mitral stenosis is present. Aortic Valve: Moderate aortic cusp calcification is present. Mild aortic valve regurgitation is present. Moderate-severe aortic valve stenosis. Aortic valve mean gradient is 34 mmHg. Tricuspid Valve: The tricuspid valve is normal in appearance and function. Trivial to mild tricuspid valve regurgitation. The pulmonary artery pressure is normal. Right ventricular systolic pressure measures 34mmHg. Pulmonic Valve: Pulmonary valve not well visualized. Aorta: The aorta is normal. Normal size aortic root measuring 3.0 cm. IVC: The IVC is normal sized. Pericardium: No pericardial effusion. No pleural effusion. Exam Comments: Patient supine due to left arm sling. (No Signature Object) Patient: ALICIA JORGE Study Date: 08/12/2018 Page 2 of 2 08:24 AM [id number]
--- NOTE | 2018-08-12 13:08 | PDIAF ---
- Diagnosis Diagnosis: L4 comp fx, recent humerus fx, polypharmacy including multiple sedating med Code Status: Full Code - Medication Management Discharge Medications: electronically signed and located in the Home Medication List. - Orders Services needed: Registered Nurse, Certified Charge Nurse, Master [employer] Technician , Physical Therapy, Occupational Therapy Diet Recommendation: no restrictions on diet Diet Texture: Regular Texture Diet Activity/Weight Bearing Restrictions: wt bear as tolerated. high fall risk Equipment: walker Additional Instructions: weight bearing as tolerated keep well hydrated - Labs/Radiology CBC w/diff Date: 09/12/18 - Follow Up Care Current Providers and Referrals: Nava Delatorre MD [Primary Care Provider] - As per Instructions
--- NOTE | 2018-08-12 13:16 | ASMTLACE ---
MARIA ELENA Length of stay for Answers: 1 day current admission Acuity / Level of Answers: No Care: Did the patient have an inpatient admission? Comorbidities - select Answers: History of falls all that apply Opioid dependence / Chronic pain Other Notes: Hypothyroidism # of Emergency department Answers: 3-4 visits in the last 6 months Social determinants Answers: Mental health diagnosis (anxiety, depression, pers onality disorders, etc.) Score: 15 Date Signed: 08/12/2018 01:16 PM Electronically Signed By:Yu Casey RN
--- NOTE | 2018-08-12 13:20 | PDDCSUM ---
Discharge Summary Discharge Summary: DISCHARGE DIAGNOSES: * Acute worsening of chronic low back pain, new L4 compression fracture identified * Recent humerus fracture * Acute toxic encephalopathy, likely due to prescribed multiple sedating medicines at home including narcotic, very high dose of Klonopin, Requip * Moderate to severe aortic stenosis, mean gradient 34; preserved left ventricular systolic function * Gait instability, high fall risk related to above as well as other issues * Osteoporosis * Chronic anxiety disorder * Chronic microcytic anemia with thalassemia; current vitamin B12 levels borderline just over 300 PROCEDURES: Echocardiogram showing aortic stenosis with mean gradient of 34, preserved left ventricular systolic function HOSPITAL COURSE SUMMARY: This patient who has a recent injury fall with a humerus fracture and chronic back pain comes in with worsening back pain. She has a new L4 compression fracture with mild endplate depression at that level. She has previous diagnosis of osteoporosis on Fosamax. Between the pain of her back and her ongoing shoulder pain the patient was having more more difficulty ambulating and not thriving well at home. Additionally it is noted that she is taking narcotic, quite a high dose of Klonopin at bedtime, and Requip all of which are significant sedating medicines for this elderly woman. Fall risk associated with these medicines is very high. Additionally eats identified by echocardiogram that she has moderate severity of aortic stenosis now with mean gradient of 34. This issue will add to her significant fall risk when medicines that may cause orthostasis, altered heart rates, or dehydration related to poor oral intake are present. The aortic stenosis will clearly need careful follow- up in terms for symptoms vital signs moving forward. She could potentially be a candidate for TAVR if it progresses. The patient was brought in the hospital and managed conservatively for all the above. Lidoderm patches and Celebrex have been added for pain relief. Her narcotic and Klonopin doses have been decreased here. She has been working with physical therapy. At this point she is stable for discharge to half-way facility for ongoing rehabilitation. In terms of managing her lumbar spine pain, if she has continued significant pain she would be a candidate for a kyphoplasty. PENDING TEST RESULTS: None MEDICATION CHANGES: Decrease in oxycodone dose from 5 mg 4 times a day to twice daily Decrease in dose of Klonopin from 2 mg at bedtime to 0.5 mg at bedtime Addition of multivitamins with iron Addition will of vitamin B12 FOLLOW-UP PLAN: Transferred today to half-way facility for ongoing rehabilitation, physical therapy Her narcotic and clonazepam doses have been decreased at this time. Would try to continue on lower doses of these medicines. If in the future she has ongoing issues with anxiety, her primary care physician or referral to a psychiatrist may be indicated to look at use of an SSRI to manage her anxiety. She should be followed at least yearly in Cardiology Clinic for her aortic stenosis. If over time she develops significant symptoms related to aortic stenosis should be a candidate for TAVR Greater than 35 minutes bedside and care coordination time today
--- NOTE | 2018-08-12 14:00 | ASMTDCNOTE ---
Case Management Discharge Discharge Order Complete? Answers: Yes Patient to Obtain Answers: Other Notes: [facility] Medications Transportation Arranged Answers: Other Notes: [facility] Transport will Pick (Date 08/12/2018 04:30 PM & Time) Faxed Final Orders Answers: Yes Family Notified Answers: Yes Discharge Comments Notes: Patient discharged to [facility]. Transport arranged by Sloan at [facility] via [place]. Ced Ousmane notified. RERE October to call report. Date Signed: 08/12/2018 02:00 PM Electronically Signed By:Yu Casey RN
--- NOTE | 2018-08-13 09:14 | ASDISCHSUM ---
Discharge Information Plan Status:Has needs-TBD Medically Cleared to Leave: Discharge Date:08/12/2018 04:42 PM CM D/C Disposition: ADT D/C Disposition:Home, Routine, Self-Care Projected Discharge Date:08/11/2018 11:00 AM Transportation at D/C: Discharge Delay Reason: Follow-Up Date:08/11/2018 11:00 AM Discharge Slot: Final Diagnosis: Placement Information Referral Type:*Group Home/SNF Referral ID:[id number] Provider Name:[facility] Address 1:[address] Address 2: City:[place] Selection Factors: State:[place] Patient Contact Information Contact Name:SADE Relationship:Son Address:[address] Work Phone: [facility]:[place] Alternate Phone: [facility]/Zip Code:[place] [address] Email: Financial Information Financial Class:Medicare Advantage Plans Primary Plan Desc:[facility] [employer] Primary Plan Number:[id number] Secondary Plan Desc: Secondary Plan Number: Assessment Information [facility] CM Progress Note CM Note CM Note Notes: Pt is an 82 yo F. was recently here last month and discharged to [facility]. Pt was discharged from [facility] one week ago and has been home with her sonJenae Bravo needs TBD at this time. CM to follow. Plan: TBD Date Signed: 08/11/2018 02:12 PM Electronically Signed By:CHELITA Felipe [facility] CM Progress Note CM Note CM Note Notes: CM spoke with . She reports she spoke with son who reports [facility] has a bed for pt for tomorrow. CM left messages for Lesia and Damian at [facility] and submit referral through [employer]. Waiting response. Plan: [facility] Date Signed: 08/11/2018 04:14 PM Electronically Signed By:CHELITA Felipe LACE LACAlexi Length of stay for Answers: 1 day current admission Acuity / Level of Answers: No Care: Did the patient have an inpatient admission? Comorbidities - select Answers: History of falls all that apply Opioid dependence / Chronic pain Other Notes: Hypothyroidism # of Emergency department Answers: 3-4 visits in the last 6 months Social determinants Answers: Mental health diagnosis (anxiety, depression, pers onality disorders, etc.) Score: 15 Date Signed: 08/12/2018 01:16 PM Electronically Signed By:Yu Casey RN Case Management Discharge Plan Note Case Management Discharge Discharge Order Complete? Answers: Yes Patient to Obtain Answers: Other Notes: [facility] Medications Transportation Arranged Answers: Other Notes: [facility] Transport will Pick (Date 08/12/2018 04:30 PM & Time) Faxed Final Orders Answers: Yes Family Notified Answers: Yes Discharge Comments Notes: Patient discharged to [facility]. Transport arranged by Sloan at [facility] via [employer]. Son Ousmane notified. RERE October to call report. Date Signed: 08/12/2018 02:00 PM Electronically Signed By:Yu Casey RN Intervention Information
== END 2018-08-12 16:42 | disposition home or self-care (01) ==
LOC: F3N 02:33
PROVIDERS: ADMIT Student in an Organized Health Care Education/Training Program; ATTEND Internal Medicine
DX: M54.5 Low back pain (principal); M80.88XS Other osteoporosis with current pathological fracture, vertebra(e), sequela; M80.822 Other osteoporosis with current pathological fracture, left humerus; G93.40 Encephalopathy, unspecified; F11.20 Opioid dependence, uncomplicated; I35.0 Nonrheumatic aortic (valve) stenosis; R26.9 Unspecified abnormalities of gait and mobility; D50.0 Iron deficiency anemia secondary to blood loss (chronic); E03.9 Hypothyroidism, unspecified; F41.9 Anxiety disorder, unspecified
CPT/HCPCS: 72100; 93306; 96372; 97162; 97166; 97530; 97535; 99285; G0378; J1650; 82607-90; 83921-90